=== PATIENT | male | born 1975 | race Caucasian/White ===

== ENCOUNTER 2016-10-05 20:28 | Emergency (ER) | payer MEDICAID ==
[~2016-10-05] VITALS: Ht 175.3 cm; Wt 115.7 kg
[2016-10-05] MEDS ORDERED: ASACOL HD800 MG ORAL (20:46)
[2016-10-05] MEDS ORDERED: ZOFRAN ODT8 MG ORAL (20:46)
[2016-10-05] MEDS ORDERED: PREDNISONE2.5 MG ORAL (20:46)
[2016-10-05] MEDS ORDERED: NORVASC10 MG ORAL (20:46)
[2016-10-05 20:50] VITALS: BP 160/93
[2016-10-05] MEDS ORDERED: metroNIDAZOLE 500mg 100 ML IVPB ONE (21:15)
[2016-10-05] MEDS ORDERED: Solu-MEDROL 125mg Inj IVP ONE (21:15)
--- NOTE | 2016-10-05 21:22 | Emergency Room Report ---
History of Present Illness General Chief Complaint: Abdominal Pain Source: Patient Present Illness HPI [id number] walk-in with "crohs flare" denotes 3 days right sided/central abd pain, nausea and diarrhea On Mesalamine and 5mg daily prednisone currently Multiple surgical history (see below) Denies blood in diarrhea History of HTN Usually improves with IV steroids, Abx Allergies: Coded Allergies: No Known Allergies (Unverified , 10/05/16) Patient History Past Medical History: HTN, other - Corhns Past Surgical History: other - 4x incarcerated hernia, 2x SBO, fistula? Pertinent Family History: none Social History: Denies: alcohol use, drug use, smoking Immunizations: UTD Reviewed Nursing Documentation: PMH: Agreed, PSxH: Agreed Review of Systems All Other Systems: negative except mentioned in HPI Physical Exam Vital Signs Date Time Temp Pulse Resp B/P Pulse Ox O2 Delivery O2 Flow Rate FiO2 10/05/16 20:42 98.1 93 16 164/92 95 Room Air Sp02 EP Interpretation: reviewed, normal General Appearance: normal inspection, well appearing, no apparent distress, alert, GCS 15, non-toxic, obese Head: normocephalic, atraumatic Eyes: bilateral eye EOMI, bilateral eye PERRL, 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 H&H stable. LFTs, lipase normal CTAP: No inflammation, colitis, obstruction, hernia. Normal No obvious lab or imaging finding c/w crohns flare-up Advised continue daily prednisone Gave GI referral Dr Lorraine CIFUENTES home EKG Diagnostic Results Rate: normal Rhythm: NSR ST Segments: no acute changes ASA given to the pt in ED: No Last Vital Signs Date Time Temp Pulse Resp B/P Pulse Ox O2 Delivery O2 Flow Rate FiO2 10/05/16 20:42 98.1 93 16 164/92 95 Room Air Status: improved Disposition: HOME, SELF-CARE Condition: Improved AMELIA CASTLE M.D. Oct 05, 2016 21:22
[2016-10-05 21:44] LABS: BASOPHILS % (AUTO) 1.1 % (0.0-2.0); EOSINOPHILS % (AUTO) 1.4 % (0.0-3.0); LYMPHOCYTES % (AUTO) 29.3 % (20.0-45.0); MEAN CORPUSCULAR HEMOGLOBIN 31.9 PG (27.0-31.0); MEAN CORPUSCULAR HGB CONC 35.1 G/DL (32.0-36.0); MEAN CORPUSCULAR VOLUME 91 FL (80-99); MEAN PLATELET VOLUME 7.7 FL (6.5-10.1); MONOCYTES % (AUTO) 8.3 % (1.0-10.0); NEUTROPHILS % (AUTO) 59.9 % (45.0-75.0); PLATELET COUNT 203 K/UL (150-450); RED CELL DISTRIBUTION WIDTH 11.5 % (11.6-14.8); WHITE BLOOD COUNT 6.8 K/UL (4.8-10.8)
[2016-10-05 21:51] LABS: ALANINE AMINOTRANSFERASE 17 U/L (3-41); ALBUMIN/GLOBULIN RATIO 1.5 (1.0-2.7); ANION GAP 11 (5-15); ASPARTATE AMINO TRANSFERASE 16 U/L (5-40); CALCIUM 9.2 mg/dL (8.6-10.2); CARBON DIOXIDE 25 mEQ/L (20-30); CHLORIDE 103 mEQ/L (98-107); CREATININE 1.1 mg/dL (0.7-1.2); GLOMERULAR FILTRATION RATE > 60 mL/min (>60); HEMOLYSIS 31; LIPASE 30 U/L (< 60); POTASSIUM 3.9 mEQ/L (3.4-4.9); SODIUM 139 mEQ/L (135-145); TOTAL PROTEIN 6.7 g/dL (6.6-8.7)
[2016-10-05] MEDS ORDERED: fentaNYL 100 mcg/2 mL IV ONE (22:15)
[2016-10-05 23:00] VITALS: BP 148/70
[2016-10-06 00:16] VITALS: BP 148/70
--- NOTE | 2016-10-06 09:52 | Diagnostic Imaging Report ---
Clinical Indication: Abdominal pain, nausea vomiting, diarrhea, history of Crohn's disease Technique: No oral contrast utilized, per emergency room physician request IV administration nonionic contrast. Venous phase spiral acquisition obtained through the abdomen and pelvis. Multiplanar reconstructions were generated. Total dose length product 992 mGycm. CTDIvol(s) 19 mGy. Dose reduction achieved using automated exposure control Comparison: None Findings: No evidence of diverticulosis or diverticulitis. Normal appendix. There is evidence of prior anterior abdominal wall hernia repair. No evidence of recurrent hernia. No small bowel distention. No free or loculated intraperitoneal air or fluid. The liver is mildly hypoattenuating, consistent with fatty change. The gallbladder is surgically absent. No biliary ductal dilatation. The pancreas, spleen, adrenals are unremarkable. A 2 mm calculus is seen with in a left renal interpolar region calyx. A 2 mm calculus is seen in a right lower pole calyx. No hydronephrosis or hydroureter. No renal mass or cyst. No retroperitoneal or mesenteric mass or adenopathy. No pelvic mass or adenopathy. The included lung bases are clear. The bones are unremarkable. Impression: No definite acute process Fatty liver Bilateral nonobstructive intrarenal calculi Evidence of prior anterior abdominal wall hernia repair This agrees with the preliminary interpretation provided overnight by [facility] teleradiology service. The CT scanner at [facility] is accredited by the [employer] and the scans are performed using protocols designed to limit radiation exposure to as low as reasonably achievable to attain images of sufficient resolution adequate for diagnostic evaluation.
== END 2016-10-06 00:16 | disposition home or self-care (01) ==
LOC: ENRESERVDT → ENRESERVTM → EMR 22:13 → EDBEDREQ 23:39 → EMR 10-06 00:16
DX: K50.90 Crohn's disease, unspecified, without complications (principal); R10.84 Generalized abdominal pain; I10 Essential (primary) hypertension; E66.9 Obesity, unspecified; K76.0 Fatty (change of) liver, not elsewhere classified; N20.0 Calculus of kidney; Z68.37 Body mass index [BMI] 37.0-37.9, adult
CPT/HCPCS: 36415; 74177; 80053; 83690; 85025; 93005; 96360; 96374; 96375; 99284; J1956; J2405; J2930; J3010; Q9967

== ENCOUNTER 2016-10-07 03:32 | Inpatient (IN) | payer MEDICAID ==
[~2016-10-07] VITALS: Ht 175.3 cm; Wt 113.4 kg
[~2016-10-07 03:32] MED LIST: ASACOL HD800 MG ORAL; NORVASC10 MG ORAL; PREDNISONE2.5 MG ORAL; ZOFRAN ODT8 MG ORAL
[2016-10-07 03:54] VITALS: BP 150/93
[2016-10-07] MEDS ORDERED: Solu-MEDROL 125mg Inj IVP ONE (04:30)
[2016-10-07] MEDS ORDERED: Morphine Sulfate 4mg/ml Inj IVP ONE ×2 (04:30→06:45)
[2016-10-07 05:00] VITALS: BP 119/96
[2016-10-07 05:21] LABS: APPEARANCE,URINE CLEAR; KETONES,URINE NEGATIVE (NEGATIVE); LEUKOCYTE ESTERASE ,URINE 1+ (NEGATIVE); NITRITE,URINE NEGATIVE (NEGATIVE); PH,URINE 5 (4.5-8.0); PROTEIN,URINE 2+ (NEGATIVE); UROBILINOGEN,URINE NORMAL MG/DL (0.0-1.0)
[2016-10-07 05:23] LABS: EOSINOPHILS % (AUTO) 0.3 % (0.0-3.0); LYMPHOCYTES % (AUTO) 37.6 % (20.0-45.0); MEAN CORPUSCULAR HEMOGLOBIN 30.3 PG (27.0-31.0); MEAN CORPUSCULAR HGB CONC 32.8 G/DL (32.0-36.0); MEAN CORPUSCULAR VOLUME 92 FL (80-99); MEAN PLATELET VOLUME 7.9 FL (6.5-10.1); MONOCYTES % (AUTO) 9.3 % (1.0-10.0); NEUTROPHILS % (AUTO) 51.8 % (45.0-75.0); PLATELET COUNT 206 K/UL (150-450); RED BLOOD COUNT 4.56 M/UL (4.70-6.10); RED CELL DISTRIBUTION WIDTH 11.5 % (11.6-14.8); WHITE BLOOD COUNT 5.2 K/UL (4.8-10.8)
[2016-10-07 05:27] LABS: ALANINE AMINOTRANSFERASE 17 U/L (3-41); ALBUMIN/GLOBULIN RATIO 1.3 (1.0-2.7); ANION GAP 13 (5-15); ASPARTATE AMINO TRANSFERASE 21 U/L (5-40); CALCIUM 9.6 mg/dL (8.6-10.2); CARBON DIOXIDE 23 mEQ/L (20-30); CHLORIDE 105 mEQ/L (98-107); GLOMERULAR FILTRATION RATE > 60 mL/min (>60); HEMOLYSIS 57; LIPASE 19 U/L (< 60); POTASSIUM 3.8 mEQ/L (3.4-4.9); SODIUM 141 mEQ/L (135-145); TOTAL PROTEIN 6.7 g/dL (6.6-8.7)
[2016-10-07 05:34] LABS: PROTHROMBIN TIME 10.3 SEC (9.30-11.50)
[2016-10-07 05:36] LABS: BACTERIA,URINE MODERATE /HPF; CALCIUM OXALATE CRYSTALS,UR FEW /LPF; MUCUS,URINE MODERATE /LPF (NONE/OCC); SQUAMOUS EPITHELIAL CELL,UR FEW /LPF (NONE/OCC)
[2016-10-07 06:00] VITALS: BP 156/92
[2016-10-07] MEDS ORDERED: cefTRIAXone 1 GM in NS 55 ML IVPB ONE (06:45)
--- NOTE | 2016-10-07 06:47 | Emergency Room Report ---
History of Present Illness General Chief Complaint: Abdominal Pain Source: Patient Present Illness HPI Patient presents with 4 days of worsening abdominal pain. Seen here 2 days ago. He has a history of Crohn's disease and is on Asacol and Prednisone 5 mg. His was better and discharged to followup with Dr. Layton was arranged. Unfortunately the pain has persisted and worsened. He's not been able to keep things down has been vomiting bile. He feels weak. The vomitus is been yellow. He's had diarrhea without any blood, brown in color. Pain is 8/10, now constant. The patient had recent surgery in May for hernia. No joint pain, sore throat, cough, chest pain, change vision, headache, rashes, anxiety. Some dizziness with standing. Allergies: Coded Allergies: No Known Allergies (Unverified , 10/05/16) Patient History Past Medical History: see triage record Past Surgical History: zoey Social History: Denies: alcohol use, drug use, smoking Social History Narrative recent move to [place] Reviewed Nursing Documentation: PMH: Agreed, PSxH: Agreed Nursing Documentation-PMH Past Medical History: No History, Except For Hx Hypertension: Yes Hx Gastrointestinal Problems: Yes - crohns Review of Systems All Other Systems: negative except mentioned in HPI Physical Exam Vital Signs Date Time Temp Pulse Resp B/P Pulse Ox O2 Delivery O2 Flow Rate FiO2 10/07/16 03:38 98.1 82 16 150/93 97 Room Air Sp02 EP Interpretation: reviewed, normal General Appearance: well appearing, no apparent distress, GCS 15 Head: normocephalic Eyes: bilateral eye PERRL, bilateral eye normal inspection ENT: moist mucus membranes Neck: supple Respiratory: lungs clear, normal breath sounds Cardiovascular #1: regular rate, rhythm Cardiovascular #2: 2+ radial (R) Gastrointestinal: no guarding, no rebound, tenderness Musculoskeletal: back normal, gait/station normal, normal range of motion Neurologic: alert, oriented x3, grossly normal Psychiatric: depressed affect Skin: normal inspection, warm/dry Medical Decision Making Diagnostic Impression: Primary Impression: Abdominal pain Qualified Codes: R10.31 - Right lower quadrant pain Additional Impressions: Crohn disease Qualified Codes: K50.918 - Crohn's disease, unspecified, with other complication UTI (urinary tract infection) Qualified Codes: N30.00 - Acute cystitis without hematuria ER Course Patient presents with abdominal pain, vomiting and diarrhea. Has a history of Crohn's disease. Differential includes exacerbation of Crohn's, diverticulitis , gastroenteritis, appendicitis amongst others. There is concern because he was seen 2 days ago and is weaker and still has pain. Evaluated with abdominal films, labs and urinalysis. In addition that he will be treated with IV hydration, Zofran and analgesia. In addition to that he'll be given a dose of methylprednisolone. CT was done before and not indicated at this time. CT 10/05: Impression: No definite acute process Fatty liver Bilateral nonobstructive intrarenal calculi Evidence of prior anterior abdominal wall hernia repair Labs are significant for normal white count. He has pyuria and antibiotics were begun. Abdominal films are remarkable for prior cholecystectomy and other abdominal wall surgery. There is no evidence of small bowel obstruction. The patient felt initially better but the pain started to come back. His repeat exam was significant for having right lower quadrant guarding which developed in the interim. A CT scan of his abdomen is ordered. Because the patient was here before and is so weak at this time the patient will be admitted to the medical floor. Signed out to Dr. Martin for review of CT. Laboratory Tests Test 10/07/16 04:25 White Blood Count 5.2 K/UL (4.8-10.8) Red Blood Count 4.56 M/UL (4.70-6.10) L Hemoglobin 13.8 G/DL (14.2-18.0) L Hematocrit 42.2 % (42.0-52.0) Mean Corpuscular Volume 92 FL (80-99) Mean Corpuscular Hemoglobin 30.3 PG (27.0-31.0) Mean Corpuscular Hemoglobin Concent 32.8 G/DL (32.0-36.0) Red Cell Distribution Width 11.5 % (11.6-14.8) L Platelet Count 206 K/UL (150-450) Mean Platelet Volume 7.9 FL (6.5-10.1) Neutrophils (%) (Auto) 51.8 % (45.0-75.0) Lymphocytes (%) (Auto) 37.6 % (20.0-45.0) Monocytes (%) (Auto) 9.3 % (1.0-10.0) Eosinophils (%) (Auto) 0.3 % (0.0-3.0) Basophils (%) (Auto) 1.0 % (0.0-2.0) Prothrombin Time 10.3 SEC (9.30-11.50) Prothrombin Time INR 1.0 (0.9-1.1) PTT 24 SEC (23-33) Urine Color Yellow Urine Appearance Clear Urine pH 5 (4.5-8.0) Urine Specific [place] 1.030 (1.005-1.035) Urine Protein 2+ (NEGATIVE) H Urine Glucose (UA) Negative (NEGATIVE) Urine Ketones Negative (NEGATIVE) Urine Occult Blood 1+ (NEGATIVE) H Urine Nitrite Negative (NEGATIVE) Urine Bilirubin Negative (NEGATIVE) Urine Urobilinogen Normal MG/DL (0.0-1.0) Urine Leukocyte Esterase 1+ (NEGATIVE) H Urine RBC 2-4 /HPF (0 - 0) H Urine WBC 5-10 /HPF (0 - 0) H Urine Squamous Epithelial Cells Few /LPF (NONE/OCC) Urine Calcium Oxalate Crystals Few /LPF (NONE) Urine Bacteria Moderate /HPF (NONE) H Urine Mucus Moderate /LPF (NONE/OCC) H Sodium Level 141 mEQ/L (135-145) Potassium Level 3.8 mEQ/L (3.4-4.9) Chloride Level 105 mEQ/L (98-107) Carbon Dioxide Level 23 mEQ/L (20-30) Anion Gap 13 (5-15) Blood Urea Nitrogen 19 mg/dL (7-23) Creatinine 1.0 mg/dL (0.7-1.2) Estimate Glomerular Filtration Rate > 60 mL/min (>60) Glucose Level 108 mg/dL (74-106) H Calcium Level 9.6 mg/dL (8.6-10.2) Total Bilirubin 0.7 mg/dL (0.0-1.2) Aspartate Amino Transferase (AST) 21 U/L (5-40) Alanine Aminotransferase (ALT) 17 U/L (3-41) Alkaline Phosphatase 59 U/L (40-129) Total Protein 6.7 g/dL (6.6-8.7) Albumin 3.9 g/dL (3.5-5.2) Globulin 2.8 g/dL Albumin/Globulin Ratio 1.3 (1.0-2.7) Lipase 19 U/L (< 60) Chest X-Ray Diagnostic Results Chest X-Ray Diagnostic Results : Chest X-Ray Ordered: Yes # of Views/Limited/Complete: 1 View Indication: Other Interpretation: no consolidation, no effusion, no pneumothorax, no acute cardiopulmonary disease Other X-Ray Diagnostic Results Other X-Ray Diagnostic Results : X-Ray ordered: abd # of Views/Limited Vs Complete: 2 View Indication: Pain EP Interpretation: Yes Interpretation: nonspecific bowel gas, no sbo, other - surgical clips Impression: No acute disease Interpreting ER Provider: Electronically signed by Dc Hayes MD Status: improved Disposition: ADMITTED INPATIENT Condition: Serious Referrals: Sebas BELLO,REFERRING (PCP) Dc Hayes M.D. Oct 07, 2016 06:47
[2016-10-07 07:34] VITALS: BP 143/113
--- NOTE | 2016-10-07 10:10 | Diagnostic Imaging Report ---
Clinical Indication: Abdominal pain, nausea vomiting, history of Crohn disease Technique: Patient given oral contrast. IV administration nonionic contrast. Venous phase spiral acquisition obtained through the abdomen and pelvis. Multiplanar reconstructions were generated. Total dose length product 1111 mGycm. CTDIvol(s) 19 mGy. Dose reduction achieved using automated exposure control Comparison: 10/05/2016 Findings: The appendix is normal and fills with contrast. There is no evidence of diverticulosis or diverticulitis. Contrast completely traverses the small bowel and fills the colon to the level of the proximal descending colon. There is no evidence of small bowel distention or small bowel wall thickening. The terminal ileum appears unremarkable. No free or loculated intraperitoneal air or fluid. Again demonstrated is surgical mesh presumably reducing prior ventral hernia. The distal esophagus, stomach, duodenum are unremarkable. The gallbladder is surgically absent. The bile ducts are unremarkable. The liver is mildly hypoattenuating diffusely. No focal abnormality. The pancreas, spleen, adrenals are unremarkable. No retroperitoneal or mesenteric mass or adenopathy. No pelvic mass or adenopathy. The bones are unremarkable. The heart is mildly enlarged. Atelectatic changes and possibly some consolidation are seen posteriorly in both lower lobes. Again demonstrated is a left interpolar region renal calyceal calculus, as well as right lower pole calyceal calculus. There is equivocally asymmetrically slightly decreased attenuation of the left kidney as compared to the right. There are focal areas of low attenuation within the left kidney which are ill-defined. The largest is in the upper interpolar region, measuring 13 mm diameter. One is in medial upper pole, and a 9 mm similar lesion is seen in the lower interpolar region. The latter lesion is somewhat more discrete, measures 9 mm diameter. These are not evident on the prior exam, although the difference may be due to the current exam in a slightly later phase of contrast opacification. No definite focal abnormality seen on the right. No hydronephrosis or hydroureter Impression: Equivocally slightly asymmetrically decreased opacification of the left kidney. Doubt significance, but if real could indicate diffuse pyelonephritis. Multiple focal low-attenuation areas in the left kidney. Suspect that these most likely represent cysts, but somewhat ill-defined nature of of the upper pole lesions raises possibility of more focal nephritis. The more inferior left renal lesion is more masslike,. Represent a complex cyst or even a renal neoplasm. Further evaluation with renal ultrasound or MRI should be considered. Note that these lesions are not evident on the exam of 2 days prior, probably as the kidneys are better opacified on the current study Bilateral nonobstructing intrarenal calculi. Negative for hydronephrosis or hydroureter No other acute abnormality Mild fatty liver Cardiomegaly Bilateral basilar pulmonary posterior to dependent atelectatic change and possible bilateral basilar consolidation Findings discussed by phone with Dr. Martin in the emergency room at time of interpretation The CT scanner at [facility] is accredited by the [employer] and the scans are performed using protocols designed to limit radiation exposure to as low as reasonably achievable to attain images of sufficient resolution adequate for diagnostic evaluation.
[2016-10-07] MEDS ORDERED: Nitroglycerin Subl 0.4mg tab (Bottle Of 25) SL PRN (11:00)
[2016-10-07] MEDS ORDERED: Mylanta II UD 30ml ORAL PRN (11:00)
[2016-10-07 11:48] VITALS: BP 149/87
[2016-10-07] MEDS: D5 1/2NS 1,000 ML IV SCH (12:09)
--- NOTE | 2016-10-07 12:17 | GI Initial Consult Note ---
History of Present Illness General Date patient seen: Oct 07, 2016 Time patient seen: 12:07 Reason for Hospitalization: Abdominal Pain Referring physician: KATHI MCCONNELL Reason for Consultation: CROHNS Present Illness HPI Patient presents with 4 days of worsening abdominal pain. Seen here 2 days ago. He has a history of Crohn's disease and is on Asacol and redness on 5 mg. His better and followup with Dr. Zhang was arranged. Unfortunately the pain is persisted and worsened. He's not been able to keep things down is been vomiting bile. He feels weak. The vomitus is been yellow. He's had diarrhea without any blood. Pain is 8/10, now constant. The patient had recent surgery in May for inguinal hernia. GI Consult. HPI as noted above. GI consulted for management of Crohn's. Pt seen on floor, awake A&Ox4 NAD with no active s/sx of N/V. Patient presents today with Crohn's flare; reports of emesis, abdominal pain, tenderness, associated with diarrhea. Denies any hematemesis or coffee grounds. No unintentional weight loss or changes in dietary habits. Currently on Asacol 800 TID + prednisone 5 daily (6 months ON, 3 months OFF). Last colonoscopy was [address] AP shows possible renal mass, see full report. Home Meds Reported Medications Ondansetron Odt* (ZOFRAN ODT*) 8 Mg Tab.rapdis, 8 MG ORAL Q6H Y for Nausea & Vomiting, #30 TAB 10/05/16 Amlodipine Besylate (Norvasc) 10 Mg Tablet, 10 MG ORAL DAILY, TAB 10/05/16 Prednisone* (PREDNISONE*) 2.5 Mg Tablet, 5 MG ORAL DAILY, #10 TAB 0 Refills 10/05/16 Mesalamine (ASACOL HD) 800 Mg Tablet.dr, 1600 MG ORAL THREE TIMES A DAY, TAB Do not break outer coating 10/05/16 Med list reviewed/reconciled: Yes Allergies: Coded Allergies: No Known Allergies (Unverified , 10/05/16) Patient History PMH Narrative Past Surgical History: zoey Social History: Denies: alcohol use, drug use, smoking Social History Narrative recent move to [place] Reviewed Nursing Documentation: PMH: Agreed, PSxH: Agreed Nursing Documentation-PMH Past Medical History: No History, Except For Hx Hypertension: Yes Hx Gastrointestinal Problems: Yes - crohns Social History: Denies: alcohol use, drug use, other, smoking Review of Systems All Other Systems: negative except mentioned in HPI Physical Exam Vital Signs Date Time Temp Pulse Resp B/P Pulse Ox O2 Delivery O2 Flow Rate FiO2 10/07/16 03:38 98.1 82 16 150/93 97 Room Air Sp02 EP Interpretation: reviewed Labs Laboratory Tests Test 10/07/16 04:25 White Blood Count 5.2 K/UL (4.8-10.8) Red Blood Count 4.56 M/UL (4.70-6.10) L Hemoglobin 13.8 G/DL (14.2-18.0) L Hematocrit 42.2 % (42.0-52.0) Mean Corpuscular Volume 92 FL (80-99) Mean Corpuscular Hemoglobin 30.3 PG (27.0-31.0) Mean Corpuscular Hemoglobin Concent 32.8 G/DL (32.0-36.0) Red Cell Distribution Width 11.5 % (11.6-14.8) L Platelet Count 206 K/UL (150-450) Mean Platelet Volume 7.9 FL (6.5-10.1) Neutrophils (%) (Auto) 51.8 % (45.0-75.0) Lymphocytes (%) (Auto) 37.6 % (20.0-45.0) Monocytes (%) (Auto) 9.3 % (1.0-10.0) Eosinophils (%) (Auto) 0.3 % (0.0-3.0) Basophils (%) (Auto) 1.0 % (0.0-2.0) Prothrombin Time 10.3 SEC (9.30-11.50) Prothromb Time International Ratio 1.0 (0.9-1.1) Activated Partial Thromboplast Time 24 SEC (23-33) Urine Color Yellow Urine Appearance Clear Urine pH 5 (4.5-8.0) Urine Specific [place] 1.030 (1.005-1.035) Urine Protein 2+ (NEGATIVE) H Urine Glucose (UA) Negative (NEGATIVE) Urine Ketones Negative (NEGATIVE) Urine Occult Blood 1+ (NEGATIVE) H Urine Nitrite Negative (NEGATIVE) Urine Bilirubin Negative (NEGATIVE) Urine Urobilinogen Normal MG/DL (0.0-1.0) Urine Leukocyte Esterase 1+ (NEGATIVE) H Urine RBC 2-4 /HPF (0 - 0) H Urine WBC 5-10 /HPF (0 - 0) H Urine Squamous Epithelial Cells Few /LPF (NONE/OCC) Urine Calcium Oxalate Crystals Few /LPF (NONE) Urine Bacteria Moderate /HPF (NONE) H Urine Mucus Moderate /LPF (NONE/OCC) H Sodium Level 141 mEQ/L (135-145) Potassium Level 3.8 mEQ/L (3.4-4.9) Chloride Level 105 mEQ/L (98-107) Carbon Dioxide Level 23 mEQ/L (20-30) Anion Gap 13 (5-15) Blood Urea Nitrogen 19 mg/dL (7-23) Creatinine 1.0 mg/dL (0.7-1.2) Estimat Glomerular Filtration Rate > 60 mL/min (>60) Glucose Level 108 mg/dL (74-106) H Calcium Level 9.6 mg/dL (8.6-10.2) Total Bilirubin 0.7 mg/dL (0.0-1.2) Aspartate Amino Transf (AST/SGOT) 21 U/L (5-40) Alanine Aminotransferase (ALT/SGPT) 17 U/L (3-41) Alkaline Phosphatase 59 U/L (40-129) Total Protein 6.7 g/dL (6.6-8.7) Albumin 3.9 g/dL (3.5-5.2) Globulin 2.8 g/dL Albumin/Globulin Ratio 1.3 (1.0-2.7) Lipase 19 U/L (< 60) General Appearance: well appearing, no apparent distress, alert Head: normocephalic EENT: PERRL/EOMI, normal ENT inspection Neck: supple Respiratory: normal breath sounds, no respiratory distress Cardiovascular: normal rate Gastrointestinal: non tender, soft, normal bowel sounds, no bruit Rectal: deferred Genitourinary: no CVA tenderness Musculoskeletal: normal inspection, back normal Neurologic: normal inspection, alert, oriented x3, responsive Psychiatric: normal inspection, judgement/insight normal, memory normal Skin: normal inspection, normal color, no rash, warm/dry, palpation normal Lymphatic: normal inspection, no adenopathy Current Medications Current Medications Medications (Trade) Dose Ordered Sig/Adrienne Route PRN Reason Start Time Stop Time Status Last Admin Dose Admin Acetaminophen (Tylenol) 650 mg Q4H PRN ORAL fever>100.5 10/07/16 11:00 11/06/16 10:59 Al Hydroxide/Mg Hydroxide (Mylanta II) 30 ml Q6H PRN ORAL dyspepsia 10/07/16 11:00 11/06/16 10:59 Amlodipine Besylate 10 mg 10 mg DAILY ORAL 10/08/16 09:00 11/07/16 08:59 Dextrose STAT PRN IV Hypoglycemia 10/07/16 11:00 11/06/16 10:59 Dextrose/Sodium Chloride (D5 0.45% NS) 1,000 ml @ 75 mls/hr [id number] IV 10/07/16 11:00 11/06/16 10:59 Diphenhydramine HCl (Benadryl) 25 mg Q6H PRN ORAL Itching/Pruritis 10/07/16 11:00 11/06/16 10:59 Heparin Sodium (Porcine) (Heparin 5000 units/ml) 5,000 units EVERY 12 HOURS SUBQ 10/07/16 21:00 11/06/16 20:59 Morphine Sulfate (Morphine Sulfate) 2 mg Q4H PRN IVP severe Pain (Pain Scale 7-10) 10/07/16 11:00 10/14/16 10:59 Nitroglycerin (Ntg) 0.4 mg Q5M X 3 DOSES PRN SL Prn Chest Pain 10/07/16 11:00 11/06/16 10:59 Ondansetron HCl (Zofran) 4 mg Q6H PRN IVP Nausea & Vomiting 10/07/16 11:00 11/06/16 10:59 Pantoprazole (Protonix) 40 mg DAILY IVP 10/08/16 09:00 11/07/16 08:59 Piperacillin Sod/ Tazobactam Sod/ Sodium Chloride (Zosyn/Sodium Chloride) 110 ml @ 27.5 mls/hr EVERY 8 HOURS IVPB 10/07/16 14:00 10/14/16 13:59 Polyethylene Glycol (Miralax) 17 gm HSPRN PRN ORAL Constipation 10/07/16 21:00 11/06/16 20:59 Temazepam (Restoril) 15 mg HSPRN PRN ORAL Insomnia 10/07/16 21:00 10/14/16 20:59 GI: Plan Problems: (1) Dehydration (2) Diarrhea (3) Abdominal pain (4) Crohn disease Plan Crohn's management - Asacol 1600 TID, hold Prednisone at this time. - ordered cdiff, stool culture >> will consider Imodium after studies - ordered ESR, C-reactive protein to r/o Crohns flare bowel rest >> maintain NPO + IV hydration zofran prn fu iron panel pain management electrolyte correction ppi abx fu labs Discussed with Dr. Waterman. Thank you for referring this patient, we will follow. Christine Gonzales N.P. Oct 07, 2016 12:17
[2016-10-07] MEDS: Piperacillin/Tazobactam 3.375 GM in NS 110 ML IVPB SCH ×2 (14:19→21:53)
--- NOTE | 2016-10-07 15:45 | History and Physical ---
History of Present Illness General Date patient seen: Oct 07, 2016 Reason for Hospitalization: Abdominal Pain Present Illness HPI 41 year old male with hx of Crohn disease presented to ER with CC of 4 days of worsening abdominal pain. He's not been able to keep food down and is been vomiting bile. He feels weak. He's had diarrhea without any blood. Pain is 8 /10, now constant. He is admitted for intractable nausea and abdominal pain. Allergies: Coded Allergies: No Known Allergies (Unverified , 10/05/16) Medication History Scheduled Amlodipine Besylate (Norvasc), 10 MG ORAL DAILY, (Reported) Mesalamine (Asacol Hd), 1,600 MG ORAL THREE TIMES A DAY, (Reported) Prednisone* (Prednisone*), 5 MG ORAL DAILY, (Reported) Scheduled PRN Ondansetron Odt* (Zofran Odt*), 8 MG ORAL Q6H PRN for Nausea & Vomiting, ( Reported) Patient History Healthcare decision maker Resuscitation status Advanced Directive on File Past Medical/Surgical History Past Medical/Surgical History: (1) Crohn disease Review of Systems All Other Systems: negative except mentioned in HPI Physical Exam General Appearance: WD/WN, no apparent distress HEENT: normocephalic, atraumatic Neck: abnormal alignment Respiratory/Chest: chest wall non-tender, lungs clear Cardiovascular/Chest: no JVD Last 24 Hour Vital Signs Date Time Temp Pulse Resp B/P Pulse Ox O2 Delivery O2 Flow Rate FiO2 10/07/16 11:48 97.7 65 18 149/87 97 Room Air 10/07/16 09:50 97.8 79 17 160/93 99 Room Air 10/07/16 07:34 97.8 88 17 143/113 98 Room Air 10/07/16 07:33 97.8 10/07/16 06:00 62 16 156/92 96 Room Air 10/07/16 05:00 97.8 70 17 119/96 98 Room Air 10/07/16 03:54 98.1 16 150/93 97 Room Air 10/07/16 03:38 98.1 82 16 150/93 97 Room Air Intake and Output 10/06/16 10/07/16 19:00 07:00 Intake Total 1000 ml Balance 1000 ml Intake IV Total 1000 ml Laboratory Tests Test 10/07/16 04:25 White Blood Count 5.2 K/UL (4.8-10.8) Red Blood Count 4.56 M/UL (4.70-6.10) L Hemoglobin 13.8 G/DL (14.2-18.0) L Hematocrit 42.2 % (42.0-52.0) Mean Corpuscular Volume 92 FL (80-99) Mean Corpuscular Hemoglobin 30.3 PG (27.0-31.0) Mean Corpuscular Hemoglobin Concent 32.8 G/DL (32.0-36.0) Red Cell Distribution Width 11.5 % (11.6-14.8) L Platelet Count 206 K/UL (150-450) Mean Platelet Volume 7.9 FL (6.5-10.1) Neutrophils (%) (Auto) 51.8 % (45.0-75.0) Lymphocytes (%) (Auto) 37.6 % (20.0-45.0) Monocytes (%) (Auto) 9.3 % (1.0-10.0) Eosinophils (%) (Auto) 0.3 % (0.0-3.0) Basophils (%) (Auto) 1.0 % (0.0-2.0) Prothrombin Time 10.3 SEC (9.30-11.50) Prothromb Time International Ratio 1.0 (0.9-1.1) Activated Partial Thromboplast Time 24 SEC (23-33) Urine Color Yellow Urine Appearance Clear Urine pH 5 (4.5-8.0) Urine Specific [place] 1.030 (1.005-1.035) Urine Protein 2+ (NEGATIVE) H Urine Glucose (UA) Negative (NEGATIVE) Urine Ketones Negative (NEGATIVE) Urine Occult Blood 1+ (NEGATIVE) H Urine Nitrite Negative (NEGATIVE) Urine Bilirubin Negative (NEGATIVE) Urine Urobilinogen Normal MG/DL (0.0-1.0) Urine Leukocyte Esterase 1+ (NEGATIVE) H Urine RBC 2-4 /HPF (0 - 0) H Urine WBC 5-10 /HPF (0 - 0) H Urine Squamous Epithelial Cells Few /LPF (NONE/OCC) Urine Calcium Oxalate Crystals Few /LPF (NONE) Urine Bacteria Moderate /HPF (NONE) H Urine Mucus Moderate /LPF (NONE/OCC) H Sodium Level 141 mEQ/L (135-145) Potassium Level 3.8 mEQ/L (3.4-4.9) Chloride Level 105 mEQ/L (98-107) Carbon Dioxide Level 23 mEQ/L (20-30) Anion Gap 13 (5-15) Blood Urea Nitrogen 19 mg/dL (7-23) Creatinine 1.0 mg/dL (0.7-1.2) Estimat Glomerular Filtration Rate > 60 mL/min (>60) Glucose Level 108 mg/dL (74-106) H Calcium Level 9.6 mg/dL (8.6-10.2) Total Bilirubin 0.7 mg/dL (0.0-1.2) Aspartate Amino Transf (AST/SGOT) 21 U/L (5-40) Alanine Aminotransferase (ALT/SGPT) 17 U/L (3-41) Alkaline Phosphatase 59 U/L (40-129) Total Protein 6.7 g/dL (6.6-8.7) Albumin 3.9 g/dL (3.5-5.2) Globulin 2.8 g/dL Albumin/Globulin Ratio 1.3 (1.0-2.7) Lipase 19 U/L (< 60) Height (Feet): 5 Height (Inches): 9.00 Weight (Pounds): 250 Medications Current Medications Medications (Trade) Dose Ordered Sig/Adrinene Route PRN Reason Start Time Stop Time Status Last Admin Dose Admin Acetaminophen (Tylenol) 650 mg Q4H PRN ORAL fever>100.5 10/07/16 11:00 11/06/16 10:59 Al Hydroxide/Mg Hydroxide (Mylanta II) 30 ml Q6H PRN ORAL dyspepsia 10/07/16 11:00 11/06/16 10:59 Amlodipine Besylate 10 mg 10 mg DAILY ORAL 10/08/16 09:00 11/07/16 08:59 Dextrose STAT PRN IV Hypoglycemia 10/07/16 11:00 11/06/16 10:59 Dextrose/Sodium Chloride (D5 0.45% NS) 1,000 ml @ 75 mls/hr [id number] IV 10/07/16 11:00 11/06/16 10:59 10/07/16 12:09 Diphenhydramine HCl (Benadryl) 25 mg Q6H PRN ORAL Itching/Pruritis 10/07/16 11:00 11/06/16 10:59 Heparin Sodium (Porcine) (Heparin 5000 units/ml) 5,000 units EVERY 12 HOURS SUBQ 10/07/16 21:00 11/06/16 20:59 Mesalamine (Asacol) 1,600 mg THREE TIMES A DAY ORAL 10/07/16 18:00 11/06/16 17:59 Morphine Sulfate (Morphine Sulfate) 2 mg Q4H PRN IVP severe Pain (Pain Scale 7-10) 10/07/16 11:00 10/14/16 10:59 Nitroglycerin (Ntg) 0.4 mg Q5M X 3 DOSES PRN SL Prn Chest Pain 10/07/16 11:00 11/06/16 10:59 Ondansetron HCl (Zofran) 4 mg Q6H PRN IVP Nausea & Vomiting 10/07/16 11:00 11/06/16 10:59 Pantoprazole (Protonix) 40 mg DAILY IVP 10/08/16 09:00 11/07/16 08:59 Piperacillin Sod/ Tazobactam Sod/ Sodium Chloride (Zosyn/Sodium Chloride) 110 ml @ 27.5 mls/hr EVERY 8 HOURS IVPB 10/07/16 14:00 10/14/16 13:59 10/07/16 14:19 Polyethylene Glycol (Miralax) 17 gm HSPRN PRN ORAL Constipation 10/07/16 21:00 11/06/16 20:59 Temazepam (Restoril) 15 mg HSPRN PRN ORAL Insomnia 10/07/16 21:00 10/14/16 20:59 Assessment/Plan Problem List: (1) Intractable nausea and vomiting ICD Codes: R11.2 - Nausea with vomiting, unspecified SNOMED: 271818375, 929500304 (2) Abdominal pain ICD Codes: R10.9 - Unspecified abdominal pain SNOMED: 11841547 Qualifiers: Qualified Codes: R10.31 - Right lower quadrant pain (3) UTI (urinary tract infection) ICD Codes: N39.0 - Urinary tract infection, site not specified SNOMED: 02443921 Qualifiers: Qualified Codes: N30.00 - Acute cystitis without hematuria (4) Dehydration ICD Codes: E86.0 - Dehydration SNOMED: 47084854 (5) Crohn disease ICD Codes: K50.90 - Crohn's disease, unspecified, without complications SNOMED: 40524318 Qualifiers: Qualified Codes: K50.918 - Crohn's disease, unspecified, with other complication Assessment/Plan npo IV fluids GI evaluation symptomatic treatment. KATHI GOODSON Oct 07, 2016 15:45
[2016-10-07] MEDS: Morphine Sulfate 2mg/ml Inj IVP PRN (17:48)
[2016-10-07 20:23] VITALS: BP 135/69
[2016-10-07] MEDS ORDERED: Miralax 17gm pkt ORAL PRN (21:00)
[2016-10-07] MEDS: Heparin 5000 units/ml inj SUBQ SCH (21:54)
[2016-10-08] VITALS (7 sets, daily range): BP systolic 113–152; BP diastolic 67–91
[2016-10-08] MEDS: D5 1/2NS 1,000 ML IV SCH ×2 (04:30→13:40)
[2016-10-08] MEDS: Piperacillin/Tazobactam 3.375 GM in NS 110 ML IVPB SCH ×3 (05:40→21:53)
[2016-10-08 07:28] LABS: BASOPHILS % (AUTO) 0.8 % (0.0-2.0); EOSINOPHILS % (AUTO) 0.1 % (0.0-3.0); LYMPHOCYTES % (AUTO) 33.2 % (20.0-45.0); MEAN CORPUSCULAR HEMOGLOBIN 32.5 PG (27.0-31.0); MEAN CORPUSCULAR HGB CONC 34.9 G/DL (32.0-36.0); MEAN CORPUSCULAR VOLUME 93 FL (80-99); MEAN PLATELET VOLUME 8.4 FL (6.5-10.1); MONOCYTES % (AUTO) 6.7 % (1.0-10.0); NEUTROPHILS % (AUTO) 59.2 % (45.0-75.0); PLATELET COUNT 159 K/UL (150-450); RED BLOOD COUNT 4.19 M/UL (4.70-6.10); RED CELL DISTRIBUTION WIDTH 11.4 % (11.6-14.8); WHITE BLOOD COUNT 5.4 K/UL (4.8-10.8)
[2016-10-08 07:35] LABS: ALANINE AMINOTRANSFERASE 15 U/L (3-41); ALBUMIN/GLOBULIN RATIO 1.5 (1.0-2.7); AMYLASE 45 U/L (10-110); ANION GAP 9 (5-15); ASPARTATE AMINO TRANSFERASE 12 U/L (5-40); CALCIUM 8.9 mg/dL (8.6-10.2); CARBON DIOXIDE 26 mEQ/L (20-30); CHLORIDE 105 mEQ/L (98-107); GLOMERULAR FILTRATION RATE > 60 mL/min (>60); HEMOLYSIS 6; LIPASE 17 U/L (< 60); POTASSIUM 3.5 mEQ/L (3.4-4.9); SODIUM 140 mEQ/L (135-145); TOTAL PROTEIN 5.7 g/dL (6.6-8.7)
[2016-10-08 07:44] LABS: HEMOLYSIS 8; IRON 100 ug/dL (59-158); TOTAL IRON BINDING CAPACITY 234 ug/dL (250-400)
[2016-10-08] MEDS: Heparin 5000 units/ml inj SUBQ SCH ×2 (09:00→09:22)
[2016-10-08] MEDS ORDERED: Pantoprazole Inj IVP SCH (09:00)
--- NOTE | 2016-10-08 10:51 | GI Progress Note ---
Assessment/Plan Problems: (1) Diarrhea ICD Codes: R19.7 - Diarrhea, unspecified SNOMED: 85856891 (2) Dehydration ICD Codes: E86.0 - Dehydration SNOMED: 35846868 (3) Intractable nausea and vomiting ICD Codes: R11.2 - Nausea with vomiting, unspecified SNOMED: 931402197, 317250458 (4) Crohn disease ICD Codes: K50.90 - Crohn's disease, unspecified, without complications SNOMED: 58428599 Qualifiers: Qualified Codes: K50.918 - Crohn's disease, unspecified, with other complication (5) Abdominal pain ICD Codes: R10.9 - Unspecified abdominal pain SNOMED: 40262559 Qualifiers: Qualified Codes: R10.31 - Right lower quadrant pain Status: stable Status Narrative Discussed with Dr. Waterman. Assessment/Plan ESR, C-reactive protein to r/o Crohns flare >> negative iron panel unremarkable cdiff negative Crohn's management - Asacol 1600 TID, hold Prednisone at this time. - fu stool culture >> Imodium prn, consider Lomotil if diarrhea persists adv to low fiber/low residual diet zofran prn pain management electrolyte correction ppi abx fu labs Subjective Gastrointestinal/Abdominal: Reports: diarrhea - x4 Objective Last 24 Hour Vital Signs Date Time Temp Pulse Resp B/P Pulse Ox O2 Delivery O2 Flow Rate FiO2 10/08/16 09:20 60 152/80 10/08/16 08:05 97.9 60 19 152/80 98 Room Air 10/08/16 04:56 97.7 74 20 137/81 95 Room Air 10/08/16 01:12 97.7 57 20 127/67 97 Room Air 10/07/16 20:23 98.1 61 19 135/69 97 Room Air 10/07/16 11:48 97.7 65 18 149/87 97 Room Air Intake and Output 10/07/16 10/08/16 19:00 07:00 Intake Total 2302.5 ml 417.5 ml Balance 2302.5 ml 417.5 ml Intake IV Total 252.5 ml 417.5 ml Other 2050 ml # Voids 1 Laboratory Tests Test 10/08/16 06:25 White Blood Count 5.4 K/UL (4.8-10.8) Red Blood Count 4.19 M/UL (4.70-6.10) L Hemoglobin 13.6 G/DL (14.2-18.0) L Hematocrit 39.0 % (42.0-52.0) L Mean Corpuscular Volume 93 FL (80-99) Mean Corpuscular Hemoglobin 32.5 PG (27.0-31.0) H Mean Corpuscular Hemoglobin Concent 34.9 G/DL (32.0-36.0) Red Cell Distribution Width 11.4 % (11.6-14.8) L Platelet Count 159 K/UL (150-450) Mean Platelet Volume 8.4 FL (6.5-10.1) Neutrophils (%) (Auto) 59.2 % (45.0-75.0) Lymphocytes (%) (Auto) 33.2 % (20.0-45.0) Monocytes (%) (Auto) 6.7 % (1.0-10.0) Eosinophils (%) (Auto) 0.1 % (0.0-3.0) Basophils (%) (Auto) 0.8 % (0.0-2.0) Erythrocyte Sedimentation Rate 14 MM/HR (0-15) Activated Partial Thromboplast Time 24 SEC (23-33) Sodium Level 140 mEQ/L (135-145) Potassium Level 3.5 mEQ/L (3.4-4.9) Chloride Level 105 mEQ/L (98-107) Carbon Dioxide Level 26 mEQ/L (20-30) Anion Gap 9 (5-15) Blood Urea Nitrogen 14 mg/dL (7-23) Creatinine 1.0 mg/dL (0.7-1.2) Estimat Glomerular Filtration Rate > 60 mL/min (>60) Glucose Level 108 mg/dL (74-106) H Calcium Level 8.9 mg/dL (8.6-10.2) Iron Level 100 ug/dL (59-158) Total Iron Binding Capacity 234 ug/dL (250-400) L Percent Iron Saturation 43 % (15-50) Unsaturated Iron Binding 134 ug/dL (112-346) Total Bilirubin 0.5 mg/dL (0.0-1.2) Aspartate Amino Transf (AST/SGOT) 12 U/L (5-40) Alanine Aminotransferase (ALT/SGPT) 15 U/L (3-41) Alkaline Phosphatase 49 U/L (40-129) C-Reactive Protein, Quantitative 0.4 mg/dL (< 0.5) Total Protein 5.7 g/dL (6.6-8.7) L Albumin 3.5 g/dL (3.5-5.2) Globulin 2.2 g/dL Albumin/Globulin Ratio 1.5 (1.0-2.7) Amylase Level 45 U/L (10-110) Lipase 17 U/L (< 60) Height (Feet): 5 Height (Inches): 9.00 Weight (Pounds): 250 General Appearance: no apparent distress, alert Cardiovascular: normal rate Respiratory/Chest: normal breath sounds, no respiratory distress Abdominal Exam: normal bowel sounds, non tender, soft Extremities: normal range of motion Christine Gonzales N.P. Oct 08, 2016 10:51
[2016-10-08] MEDS: Loperamide 2mg cap ORAL PRN (14:47)
[2016-10-08] MEDS: Morphine Sulfate 2mg/ml Inj IVP PRN (14:48)
--- NOTE | 2016-10-08 15:58 | Pulmonology Progress Note ---
Assessment/Plan Problems: (1) Crohn disease (2) Intractable nausea and vomiting (3) Abdominal pain (4) UTI (urinary tract infection) (5) Dehydration Assessment/Plan f/u gi recommendations IV abx ? steroids check electrolytes. Subjective ROS Limited/Unobtainable: No Interval Events: still has diarrhea Allergies: Coded Allergies: No Known Allergies (Unverified , 10/05/16) Objective Last 24 Hour Vital Signs Date Time Temp Pulse Resp B/P Pulse Ox O2 Delivery O2 Flow Rate FiO2 10/08/16 15:50 98.1 64 19 150/87 95 Room Air 10/08/16 11:45 97.5 54 21 116/71 95 Room Air 10/08/16 09:20 60 152/80 10/08/16 08:05 97.9 60 19 152/80 98 Room Air 10/08/16 04:56 97.7 74 20 137/81 95 Room Air 10/08/16 01:12 97.7 57 20 127/67 97 Room Air 10/07/16 20:23 98.1 61 19 135/69 97 Room Air Intake and Output 10/07/16 10/08/16 19:00 07:00 Intake Total 2302.5 ml 417.5 ml Balance 2302.5 ml 417.5 ml IV Total 252.5 ml 417.5 ml Other 2050 ml # Voids 1 General Appearance: WD/WN HEENT: normocephalic, atraumatic Respiratory/Chest: chest wall non-tender, lungs clear Cardiovascular: normal peripheral pulses, normal rate Abdomen: normal bowel sounds, soft, non tender Genitourinary: normal external genitalia Extremities: no clubbing Skin: no rash 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, no motor/sensory deficits Lymphatic: no neck adenopathy, no groin adenopathy Musculoskeletal: normal muscle bulk Laboratory Tests 10/08/16 06:25: White Blood Count 5.4, Red Blood Count 4.19L, Hemoglobin 13.6L, Hematocrit 39.0L , Mean Corpuscular Volume 93, Mean Corpuscular Hemoglobin 32.5H, Mean Corpuscular Hemoglobin Concent 34.9, Red Cell Distribution Width 11.4L, Platelet Count 159, Mean Platelet Volume 8.4, Neutrophils (%) (Auto) 59.2, Lymphocytes (%) (Auto) 33.2, Monocytes (%) (Auto) 6.7, Eosinophils (%) (Auto) 0.1, Basophils (%) (Auto) 0.8, Erythrocyte Sedimentation Rate 14, Activated Partial Thromboplast Time 24, Sodium Level 140, Potassium Level 3.5, Chloride Level 105, Carbon Dioxide Level 26, Anion Gap 9, Blood Urea Nitrogen 14, Creatinine 1.0, Estimat Glomerular Filtration Rate > 60, Glucose Level 108H, Calcium Level 8.9, Iron Level 100, Total Iron Binding Capacity 234L, Percent Iron Saturation 43, Unsaturated Iron Binding 134, Total Bilirubin 0.5, Aspartate Amino Transf (AST/SGOT) 12, Alanine Aminotransferase (ALT/SGPT) 15, Alkaline Phosphatase 49, C-Reactive Protein, Quantitative 0.4, Total Protein 5.7L, Albumin 3.5, Globulin 2.2, Albumin/Globulin Ratio 1.5, Amylase Level 45, Lipase 17 Current Medications Medications (Trade) Dose Ordered Sig/Adrienne Route PRN Reason Start Time Stop Time Status Last Admin Dose Admin Acetaminophen (Tylenol) 650 mg Q4H PRN ORAL fever>100.5 10/07/16 11:00 11/06/16 10:59 Al Hydroxide/Mg Hydroxide (Mylanta II) 30 ml Q6H PRN ORAL dyspepsia 10/07/16 11:00 11/06/16 10:59 Amlodipine Besylate 10 mg 10 mg DAILY ORAL 10/08/16 09:00 11/07/16 08:59 10/08/16 09:20 Dextrose STAT PRN IV Hypoglycemia 10/07/16 11:00 11/06/16 10:59 Dextrose/Sodium Chloride (D5 0.45% NS) 1,000 ml @ 75 mls/hr [id number] IV 10/07/16 11:00 11/06/16 10:59 10/08/16 04:30 Diphenhydramine HCl (Benadryl) 25 mg Q6H PRN ORAL Itching/Pruritis 10/07/16 11:00 11/06/16 10:59 Heparin Sodium (Porcine) (Heparin 5000 units/ml) 5,000 units EVERY 12 HOURS SUBQ 10/07/16 21:00 11/06/16 20:59 10/07/16 21:54 Loperamide HCl (Imodium) 2 mg Q4H PRN ORAL Diarrhea 10/08/16 10:30 11/07/16 10:29 10/08/16 14:47 Mesalamine (Asacol) 1,600 mg THREE TIMES A DAY ORAL 10/07/16 18:00 11/06/16 17:59 10/08/16 13:35 Morphine Sulfate (Morphine Sulfate) 2 mg Q4H PRN IVP severe Pain (Pain Scale 7-10) 10/07/16 11:00 10/14/16 10:59 10/08/16 14:48 Nitroglycerin (Ntg) 0.4 mg Q5M X 3 DOSES PRN SL Prn Chest Pain 10/07/16 11:00 11/06/16 10:59 Ondansetron HCl (Zofran) 4 mg Q6H PRN IVP Nausea & Vomiting 10/07/16 11:00 11/06/16 10:59 Pantoprazole (Protonix) 40 mg DAILY ORAL 10/09/16 09:00 11/08/16 08:59 Piperacillin Sod/ Tazobactam Sod/ Sodium Chloride (Zosyn/Sodium Chloride) 110 ml @ 27.5 mls/hr EVERY 8 HOURS IVPB 10/07/16 14:00 10/14/16 13:59 10/08/16 13:36 Polyethylene Glycol (Miralax) 17 gm HSPRN PRN ORAL Constipation 10/07/16 21:00 11/06/16 20:59 Temazepam (Restoril) 15 mg HSPRN PRN ORAL Insomnia 10/07/16 21:00 10/14/16 20:59 KATHI GOODSON Oct 08, 2016 15:58
[2016-10-08] MEDS ORDERED: D5 1/2NS 1000ml IV ONE (17:09)
[2016-10-08] MEDS ORDERED: Tubing IV Secondary IV ONE (17:09)
[2016-10-09] MEDS: D5 1/2NS 1,000 ML IV SCH ×3 (01:27→21:13)
[2016-10-09 04:00] VITALS: BP 120/78
[2016-10-09] MEDS: Piperacillin/Tazobactam 3.375 GM in NS 110 ML IVPB SCH ×3 (06:13→21:13)
[2016-10-09 07:29] LABS: EOSINOPHILS % (AUTO) 0.6 % (0.0-3.0); LYMPHOCYTES % (AUTO) 46.8 % (20.0-45.0); MEAN CORPUSCULAR HEMOGLOBIN 30.8 PG (27.0-31.0); MEAN CORPUSCULAR HGB CONC 32.9 G/DL (32.0-36.0); MEAN CORPUSCULAR VOLUME 93 FL (80-99); MEAN PLATELET VOLUME 8.8 FL (6.5-10.1); MONOCYTES % (AUTO) 7.3 % (1.0-10.0); NEUTROPHILS % (AUTO) 44.3 % (45.0-75.0); PLATELET COUNT 184 K/UL (150-450); RED BLOOD COUNT 4.29 M/UL (4.70-6.10); RED CELL DISTRIBUTION WIDTH 11.4 % (11.6-14.8); WHITE BLOOD COUNT 4.2 K/UL (4.8-10.8)
[2016-10-09 07:40] LABS: ALANINE AMINOTRANSFERASE 16 U/L (3-41); ALBUMIN/GLOBULIN RATIO 1.5 (1.0-2.7); ANION GAP 8 (5-15); ASPARTATE AMINO TRANSFERASE 11 U/L (5-40); CALCIUM 8.8 mg/dL (8.6-10.2); CARBON DIOXIDE 28 mEQ/L (20-30); CHLORIDE 104 mEQ/L (98-107); GLOMERULAR FILTRATION RATE > 60 mL/min (>60); HEMOLYSIS 7; POTASSIUM 3.5 mEQ/L (3.4-4.9); SODIUM 140 mEQ/L (135-145); TOTAL PROTEIN 5.7 g/dL (6.6-8.7)
[2016-10-09 07:49] LABS: CRP QUANT < 0.3 mg/dL (< 0.5); MAGNESIUM 2.1 mg/dL (1.7-2.5); PHOSPHORUS 3.2 mg/dL (2.5-4.8)
[2016-10-09 08:00] VITALS: BP 137/98
[2016-10-09] MEDS ORDERED: D5 1/2NS 1000ml IV ONE (09:04)
[2016-10-09] MEDS: Loperamide 2mg cap ORAL PRN (09:19)
[2016-10-09] MEDS: Heparin 5000 units/ml inj SUBQ SCH ×2 (09:21→21:00)
[2016-10-09] MEDS: Morphine Sulfate 2mg/ml Inj IVP PRN ×2 (09:36→18:17)
--- NOTE | 2016-10-09 10:51 | GI Progress Note ---
Assessment/Plan Problems: (1) Diarrhea ICD Codes: R19.7 - Diarrhea, unspecified SNOMED: 60467661 (2) Dehydration ICD Codes: E86.0 - Dehydration SNOMED: 48118477 (3) Intractable nausea and vomiting ICD Codes: R11.2 - Nausea with vomiting, unspecified SNOMED: 761175911, 839974300 (4) Crohn disease ICD Codes: K50.90 - Crohn's disease, unspecified, without complications SNOMED: 08233193 Qualifiers: Qualified Codes: K50.918 - Crohn's disease, unspecified, with other complication (5) Abdominal pain ICD Codes: R10.9 - Unspecified abdominal pain SNOMED: 16430732 Qualifiers: Qualified Codes: R10.31 - Right lower quadrant pain Status: stable, unchanged Status Narrative Discussed with Dr. Waterman. Assessment/Plan ESR, C-reactive protein to r/o Crohns flare >> negative iron panel unremarkable Crohn's management - Asacol 1600 TID, hold Prednisone at this time given negative ESR, C-reactive - fu cdiff, stool culture >> Lomotil prn ow fiber/low residual diet zofran prn pain management electrolyte correction ppi abx fu labs Subjective Subjective continues to have large amounts of diarrhea x 15 today. Objective Last 24 Hour Vital Signs Date Time Temp Pulse Resp B/P Pulse Ox O2 Delivery O2 Flow Rate FiO2 10/09/16 09:19 85 137/98 10/09/16 08:00 97.7 85 18 137/98 97 Room Air 10/09/16 04:00 96.8 56 18 120/78 97 Room Air 10/08/16 20:00 97.7 97 18 113/74 96 Room Air 10/08/16 15:50 98.1 64 19 150/87 95 Room Air 10/08/16 11:45 97.5 54 21 116/71 95 Room Air Intake and Output 10/08/16 10/09/16 19:00 07:00 Intake Total 555 ml 635.0 ml Balance 555 ml 635.0 ml Intake Oral 480 ml IV Total 75 ml 635.0 ml # Voids 2 Laboratory Tests Test 10/09/16 06:05 White Blood Count 4.2 K/UL (4.8-10.8) L Red Blood Count 4.29 M/UL (4.70-6.10) L Hemoglobin 13.2 G/DL (14.2-18.0) L Hematocrit 40.1 % (42.0-52.0) L Mean Corpuscular Volume 93 FL (80-99) Mean Corpuscular Hemoglobin 30.8 PG (27.0-31.0) Mean Corpuscular Hemoglobin Concent 32.9 G/DL (32.0-36.0) Red Cell Distribution Width 11.4 % (11.6-14.8) L Platelet Count 184 K/UL (150-450) Mean Platelet Volume 8.8 FL (6.5-10.1) Neutrophils (%) (Auto) 44.3 % (45.0-75.0) L Lymphocytes (%) (Auto) 46.8 % (20.0-45.0) H Monocytes (%) (Auto) 7.3 % (1.0-10.0) Eosinophils (%) (Auto) 0.6 % (0.0-3.0) Basophils (%) (Auto) 1.0 % (0.0-2.0) Erythrocyte Sedimentation Rate 13 MM/HR (0-15) Sodium Level 140 mEQ/L (135-145) Potassium Level 3.5 mEQ/L (3.4-4.9) Chloride Level 104 mEQ/L (98-107) Carbon Dioxide Level 28 mEQ/L (20-30) Anion Gap 8 (5-15) Blood Urea Nitrogen 10 mg/dL (7-23) Creatinine 1.0 mg/dL (0.7-1.2) Estimat Glomerular Filtration Rate > 60 mL/min (>60) Glucose Level 94 mg/dL (74-106) Calcium Level 8.8 mg/dL (8.6-10.2) Phosphorus Level 3.2 mg/dL (2.5-4.8) Magnesium Level 2.1 mg/dL (1.7-2.5) Total Bilirubin 0.4 mg/dL (0.0-1.2) Aspartate Amino Transf (AST/SGOT) 11 U/L (5-40) Alanine Aminotransferase (ALT/SGPT) 16 U/L (3-41) Alkaline Phosphatase 46 U/L (40-129) C-Reactive Protein, Quantitative < 0.3 mg/dL (< 0.5) Total Protein 5.7 g/dL (6.6-8.7) L Albumin 3.5 g/dL (3.5-5.2) Globulin 2.2 g/dL Albumin/Globulin Ratio 1.5 (1.0-2.7) Height (Feet): 5 Height (Inches): 9.00 Weight (Pounds): 250 General Appearance: no apparent distress, alert Cardiovascular: normal rate Respiratory/Chest: normal breath sounds, no respiratory distress Abdominal Exam: normal bowel sounds, non tender, soft Genitourinary/Rectal: normal rectal exam Extremities: normal range of motion Christine Gonzales N.P. Oct 09, 2016 10:51
[2016-10-09 12:40] VITALS: BP 131/77
--- NOTE | 2016-10-09 14:12 | Infectious Diseases Prog Note ---
Assessment/Plan Assessment/Plan ID consult dictated # [id number] Subjective Allergies: Coded Allergies: No Known Allergies (Unverified , 10/05/16) Objective Vital Signs Last 24 Hour Vital Signs Date Time Temp Pulse Resp B/P Pulse Ox O2 Delivery O2 Flow Rate FiO2 10/09/16 12:40 98.2 78 18 131/77 97 Room Air 10/09/16 09:19 85 137/98 10/09/16 08:00 97.7 85 18 137/98 97 Room Air 10/09/16 04:00 96.8 56 18 120/78 97 Room Air 10/08/16 20:00 97.7 97 18 113/74 96 Room Air 10/08/16 15:50 98.1 64 19 150/87 95 Room Air Height (Feet): 5 Height (Inches): 9.00 Weight (Pounds): 250 Microbiology Date/Time Source Procedure Growth Status 10/08/16 08:15 Stool Clostridium difficile Toxin Assay - Final Complete 10/07/16 04:25 Urine,Clean Catch Urine Culture - Preliminary Resulted Laboratory Tests Test 10/09/16 06:05 White Blood Count 4.2 K/UL (4.8-10.8) L Red Blood Count 4.29 M/UL (4.70-6.10) L Hemoglobin 13.2 G/DL (14.2-18.0) L Hematocrit 40.1 % (42.0-52.0) L Mean Corpuscular Volume 93 FL (80-99) Mean Corpuscular Hemoglobin 30.8 PG (27.0-31.0) Mean Corpuscular Hemoglobin Concent 32.9 G/DL (32.0-36.0) Red Cell Distribution Width 11.4 % (11.6-14.8) L Platelet Count 184 K/UL (150-450) Mean Platelet Volume 8.8 FL (6.5-10.1) Neutrophils (%) (Auto) 44.3 % (45.0-75.0) L Lymphocytes (%) (Auto) 46.8 % (20.0-45.0) H Monocytes (%) (Auto) 7.3 % (1.0-10.0) Eosinophils (%) (Auto) 0.6 % (0.0-3.0) Basophils (%) (Auto) 1.0 % (0.0-2.0) Erythrocyte Sedimentation Rate 13 MM/HR (0-15) Sodium Level 140 mEQ/L (135-145) Potassium Level 3.5 mEQ/L (3.4-4.9) Chloride Level 104 mEQ/L (98-107) Carbon Dioxide Level 28 mEQ/L (20-30) Anion Gap 8 (5-15) Blood Urea Nitrogen 10 mg/dL (7-23) Creatinine 1.0 mg/dL (0.7-1.2) Estimat Glomerular Filtration Rate > 60 mL/min (>60) Glucose Level 94 mg/dL (74-106) Calcium Level 8.8 mg/dL (8.6-10.2) Phosphorus Level 3.2 mg/dL (2.5-4.8) Magnesium Level 2.1 mg/dL (1.7-2.5) Total Bilirubin 0.4 mg/dL (0.0-1.2) Aspartate Amino Transf (AST/SGOT) 11 U/L (5-40) Alanine Aminotransferase (ALT/SGPT) 16 U/L (3-41) Alkaline Phosphatase 46 U/L (40-129) C-Reactive Protein, Quantitative < 0.3 mg/dL (< 0.5) Total Protein 5.7 g/dL (6.6-8.7) L Albumin 3.5 g/dL (3.5-5.2) Globulin 2.2 g/dL Albumin/Globulin Ratio 1.5 (1.0-2.7) Current Medications Medications (Trade) Dose Ordered Sig/Adrienne Route PRN Reason Start Time Stop Time Status Last Admin Dose Admin Acetaminophen (Tylenol) 650 mg Q4H PRN ORAL fever>100.5 10/07/16 11:00 11/06/16 10:59 Al Hydroxide/Mg Hydroxide (Mylanta II) 30 ml Q6H PRN ORAL dyspepsia 10/07/16 11:00 11/06/16 10:59 Amlodipine Besylate 10 mg 10 mg DAILY ORAL 10/08/16 09:00 11/07/16 08:59 10/09/16 09:19 Dextrose STAT PRN IV Hypoglycemia 10/07/16 11:00 11/06/16 10:59 Dextrose/Sodium Chloride (D5 0.45% NS) 1,000 ml @ 75 mls/hr [id number] IV 10/07/16 11:00 11/06/16 10:59 10/09/16 01:27 Diphenhydramine HCl (Benadryl) 25 mg Q6H PRN ORAL Itching/Pruritis 10/07/16 11:00 11/06/16 10:59 Diphenoxylate HCl/ Atropine (Lomotil) 2.5 mg Q4H PRN ORAL Diarrhea 10/09/16 10:30 11/08/16 10:29 Heparin Sodium (Porcine) (Heparin 5000 units/ml) 5,000 units EVERY 12 HOURS SUBQ 10/07/16 21:00 11/06/16 20:59 10/09/16 09:21 Mesalamine (Asacol) 1,600 mg THREE TIMES A DAY ORAL 10/07/16 18:00 11/06/16 17:59 10/09/16 13:50 Morphine Sulfate (Morphine Sulfate) 2 mg Q4H PRN IVP severe Pain (Pain Scale 7-10) 10/07/16 11:00 10/14/16 10:59 10/09/16 09:36 Nitroglycerin (Ntg) 0.4 mg Q5M X 3 DOSES PRN SL Prn Chest Pain 10/07/16 11:00 11/06/16 10:59 Ondansetron HCl (Zofran) 4 mg Q6H PRN IVP Nausea & Vomiting 10/07/16 11:00 11/06/16 10:59 Pantoprazole (Protonix) 40 mg DAILY ORAL 10/09/16 09:00 11/08/16 08:59 10/09/16 09:19 Piperacillin Sod/ Tazobactam Sod/ Sodium Chloride (Zosyn/Sodium Chloride) 110 ml @ 27.5 mls/hr EVERY 8 HOURS IVPB 10/07/16 14:00 10/14/16 13:59 10/09/16 13:50 Polyethylene Glycol (Miralax) 17 gm HSPRN PRN ORAL Constipation 10/07/16 21:00 11/06/16 20:59 Temazepam (Restoril) 15 mg HSPRN PRN ORAL Insomnia 10/07/16 21:00 10/14/16 20:59 JAMIE DE LA TORRE Oct 09, 2016 14:12
--- NOTE | 2016-10-09 15:20 | Pulmonology Progress Note ---
Assessment/Plan Problems: (1) Crohn disease (2) Intractable nausea and vomiting (3) Abdominal pain (4) UTI (urinary tract infection) (5) Dehydration Assessment/Plan f/u gi recommendations IV abx claims to have > 15 times diarrhea check electrolytes. Subjective ROS Limited/Unobtainable: No Constitutional: Reports: no symptoms HEENT: Repors: no symptoms Allergies: Coded Allergies: No Known Allergies (Unverified , 10/05/16) Objective Last 24 Hour Vital Signs Date Time Temp Pulse Resp B/P Pulse Ox O2 Delivery O2 Flow Rate FiO2 10/09/16 12:40 98.2 78 18 131/77 97 Room Air 10/09/16 09:19 85 137/98 10/09/16 08:00 97.7 85 18 137/98 97 Room Air 10/09/16 04:00 96.8 56 18 120/78 97 Room Air 10/08/16 20:00 97.7 97 18 113/74 96 Room Air 10/08/16 15:50 98.1 64 19 150/87 95 Room Air Intake and Output 10/08/16 10/09/16 19:00 07:00 Intake Total 555 ml 635.0 ml Balance 555 ml 635.0 ml Intake Oral 480 ml IV Total 75 ml 635.0 ml # Voids 2 General Appearance: WD/WN HEENT: normocephalic, atraumatic Respiratory/Chest: chest wall non-tender, lungs clear Cardiovascular: normal peripheral pulses, normal rate Abdomen: normal bowel sounds, soft, non tender, no organomegaly Extremities: no cyanosis, no clubbing Microbiology Date/Time Source Procedure Growth Status 10/08/16 08:15 Stool Clostridium difficile Toxin Assay - Final Complete 10/07/16 04:25 Urine,Clean Catch Urine Culture - Preliminary Resulted Laboratory Tests 10/09/16 06:05: White Blood Count 4.2L, Red Blood Count 4.29L, Hemoglobin 13.2L, Hematocrit 40.1L, Mean Corpuscular Volume 93, Mean Corpuscular Hemoglobin 30.8, Mean Corpuscular Hemoglobin Concent 32.9, Red Cell Distribution Width 11.4L, Platelet Count 184, Mean Platelet Volume 8.8, Neutrophils (%) (Auto) 44.3L, Lymphocytes (%) (Auto) 46.8H, Monocytes (%) (Auto) 7.3, Eosinophils (%) (Auto) 0.6, Basophils (%) (Auto) 1.0, Erythrocyte Sedimentation Rate 13, Sodium Level 140, Potassium Level 3.5, Chloride Level 104, Carbon Dioxide Level 28, Anion Gap 8, Blood Urea Nitrogen 10, Creatinine 1.0, Estimat Glomerular Filtration Rate > 60, Glucose Level 94, Calcium Level 8.8, Phosphorus Level 3.2, Magnesium Level 2.1, Total Bilirubin 0.4, Aspartate Amino Transf (AST/SGOT) 11, Alanine Aminotransferase (ALT/SGPT) 16, Alkaline Phosphatase 46, C-Reactive Protein, Quantitative < 0.3, Total Protein 5.7L, Albumin 3.5, Globulin 2.2, Albumin/ Globulin Ratio 1.5 Current Medications Medications (Trade) Dose Ordered Sig/Adrienne Route PRN Reason Start Time Stop Time Status Last Admin Dose Admin Acetaminophen (Tylenol) 650 mg Q4H PRN ORAL fever>100.5 10/07/16 11:00 11/06/16 10:59 Al Hydroxide/Mg Hydroxide (Mylanta II) 30 ml Q6H PRN ORAL dyspepsia 10/07/16 11:00 11/06/16 10:59 Amlodipine Besylate 10 mg 10 mg DAILY ORAL 10/08/16 09:00 11/07/16 08:59 10/09/16 09:19 Dextrose STAT PRN IV Hypoglycemia 10/07/16 11:00 11/06/16 10:59 Dextrose/Sodium Chloride (D5 0.45% NS) 1,000 ml @ 75 mls/hr [id number] IV 10/07/16 11:00 11/06/16 10:59 10/09/16 01:27 Diphenhydramine HCl (Benadryl) 25 mg Q6H PRN ORAL Itching/Pruritis 10/07/16 11:00 11/06/16 10:59 Diphenoxylate HCl/ Atropine (Lomotil) 2.5 mg Q4H PRN ORAL Diarrhea 10/09/16 10:30 11/08/16 10:29 Heparin Sodium (Porcine) (Heparin 5000 units/ml) 5,000 units EVERY 12 HOURS SUBQ 10/07/16 21:00 11/06/16 20:59 10/09/16 09:21 Mesalamine (Asacol) 1,600 mg THREE TIMES A DAY ORAL 10/07/16 18:00 11/06/16 17:59 10/09/16 13:50 Morphine Sulfate (Morphine Sulfate) 2 mg Q4H PRN IVP severe Pain (Pain Scale 7-10) 10/07/16 11:00 10/14/16 10:59 10/09/16 09:36 Nitroglycerin (Ntg) 0.4 mg Q5M X 3 DOSES PRN SL Prn Chest Pain 10/07/16 11:00 11/06/16 10:59 Ondansetron HCl (Zofran) 4 mg Q6H PRN IVP Nausea & Vomiting 10/07/16 11:00 11/06/16 10:59 Pantoprazole (Protonix) 40 mg DAILY ORAL 10/09/16 09:00 11/08/16 08:59 10/09/16 09:19 Piperacillin Sod/ Tazobactam Sod/ Sodium Chloride (Zosyn/Sodium Chloride) 110 ml @ 27.5 mls/hr EVERY 8 HOURS IVPB 10/07/16 14:00 10/14/16 13:59 10/09/16 13:50 Polyethylene Glycol (Miralax) 17 gm HSPRN PRN ORAL Constipation 10/07/16 21:00 11/06/16 20:59 Temazepam (Restoril) 15 mg HSPRN PRN ORAL Insomnia 10/07/16 21:00 10/14/16 20:59 KATHI GOODSON Oct 09, 2016 15:20
[2016-10-09] MEDS: Lomotil 2.5mg tab ORAL PRN (17:29)
[2016-10-09 20:00] VITALS: BP 90/49
--- NOTE | 2016-10-09 21:45 | Consultation ---
DATE OF CONSULTATION: 10/09/2016 INFECTIOUS DISEASE CONSULT This consult is for coverage of Dr. Cardona. PRIMARY ATTENDING PHYSICIAN: Layla Cuenca M.D. REASON FOR CONSULT: Diarrhea and Crohn's disease. HISTORY OF PRESENT ILLNESS: The patient is a 41-year-old white male, admitted on 10/07/2016 because of right-sided abdominal pain and diarrhea. Symptoms became worse during the treatment. The patient had bad diarrhea. The patient had a CT scan of the abdomen and pelvis that was suspected of left kidney disease. PAST MEDICAL HISTORY: Crohn's disease for four years. Usually, the patient gets sick once in a year. MEDICATIONS: Lomotil, Protonix, amlodipine, heparin, MiraLax, temazepam, Asacol, Zosyn, Tylenol, morphine sulfate, Zofran, and Mylanta. ALLERGIES: No known drug allergies. SOCIAL HISTORY: Lives alone. No history of alcohol, drug abuse, or smoking. The patient has no pets. No history of travel outside of the [place]. No sick contacts. 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 REVIEW OF SYSTEMS: No fevers. No chills. No sore throat. No coughing. Had nausea and vomiting at the time of admission. Diarrhea and abdominal pain on the right side. No problem passing urine. PHYSICAL EXAMINATION: VITAL SIGNS: Temperature 98.2 degrees, pulse 78, and blood pressure 131/77. GENERAL APPEARANCE: In no acute distress. Seems to be obese. BMI is 36.9. HEAD AND NECK: [place] conjunctivae. No oral lesions. HEART: S1 and S2 regular. LUNGS: Clear. ABDOMEN: Obese and soft. Mildly tender in the right side. EXTREMITIES: He has no edema. LABORATORY DATA: WBC 4.2, hemoglobin 13.2, hematocrit 40.1, and platelets is 184,000. Sodium 140, potassium 3.5, chloride 104, bicarbonate 28, BUN 10, and creatinine 1. CT scan of the abdomen showed a slightly decreased opacification of the left kidney, questionable nephritis, mild fatty liver, and bilateral renal stones that are nonobstructive. UA showed WBC of 5 to 10. IMPRESSION: Diarrhea, likely secondary to Crohn's disease activation, abdominal pain, nausea, vomiting, and renal calculi. We will try to rule out urinary tract infection. RECOMMENDATIONS: We will continue Zosyn. We will follow up the cultures. So far, C. diff was negative. We will discuss the case with GI doctor. At the end of my exam, I thank Dr. Cuenca for involving me in the care of this patient. John Lopez M.D. DR: JUVENAL JOB#: [id number] CC:
[2016-10-10] MEDS: Piperacillin/Tazobactam 3.375 GM in NS 110 ML IVPB SCH ×3 (06:50→22:26)
[2016-10-10 07:15] LABS: EOSINOPHILS % (AUTO) 2.1 % (0.0-3.0); LYMPHOCYTES % (AUTO) 45.8 % (20.0-45.0); MEAN CORPUSCULAR HEMOGLOBIN 31.5 PG (27.0-31.0); MEAN CORPUSCULAR HGB CONC 34.3 G/DL (32.0-36.0); MEAN CORPUSCULAR VOLUME 92 FL (80-99); MEAN PLATELET VOLUME 8.4 FL (6.5-10.1); MONOCYTES % (AUTO) 7.1 % (1.0-10.0); PLATELET COUNT 179 K/UL (150-450); RED BLOOD COUNT 4.49 M/UL (4.70-6.10); WHITE BLOOD COUNT 4.2 K/UL (4.8-10.8)
[2016-10-10 07:35] LABS: ANION GAP 9 (5-15); CALCIUM 9.1 mg/dL (8.6-10.2); CARBON DIOXIDE 25 mEQ/L (20-30); CHLORIDE 104 mEQ/L (98-107); GLOMERULAR FILTRATION RATE > 60 mL/min (>60); HEMOLYSIS 8; POTASSIUM 3.8 mEQ/L (3.4-4.9); SODIUM 138 mEQ/L (135-145)
[2016-10-10 08:00] VITALS: BP 105/55
[2016-10-10] MEDS: Heparin 5000 units/ml inj SUBQ SCH ×2 (09:00→22:41)
[2016-10-10] MEDS: Lomotil 2.5mg tab ORAL PRN (09:47)
--- NOTE | 2016-10-10 11:35 | General Progress Note ---
Assessment/Plan Assessment/Plan Assessment/Plan Problems: (1) Diarrhea ICD Codes: R19.7 - Diarrhea, unspecified SNOMED: 00255974 (2) Dehydration ICD Codes: E86.0 - Dehydration SNOMED: 50728049 (3) Intractable nausea and vomiting ICD Codes: R11.2 - Nausea with vomiting, unspecified SNOMED: 036807273, 371847244 (4) Crohn disease ICD Codes: K50.90 - Crohn's disease, unspecified, without complications SNOMED: 62332916 Qualifiers: Qualified Codes: K50.918 - Crohn's disease, unspecified, with other complication (5) Abdominal pain ICD Codes: R10.9 - Unspecified abdominal pain SNOMED: 84775124 Qualifiers: Qualified Codes: R10.31 - Right lower quadrant pain Status: stable Assessment/Plan ESR, C-reactive protein to r/o Crohns flare >> negative iron panel unremarkable cdiff negative Crohn's management - Asacol 1600 TID, hold Prednisone at this time. - fu stool culture >> Imodium prn, consider Lomotil if diarrhea persists adv to low fiber/low residual diet zofran prn pain management electrolyte correction ppi abx fu labs Subjective Allergies: Coded Allergies: No Known Allergies (Unverified , 10/05/16) Subjective tolerating PO low residue diet 16x BM yesterday some (R) sided discomfort Objective Last 24 Hour Vital Signs Date Time Temp Pulse Resp B/P Pulse Ox O2 Delivery O2 Flow Rate FiO2 10/10/16 09:00 72 105/55 10/10/16 08:00 97.9 72 16 105/55 96 Room Air 10/09/16 20:00 97.5 65 20 90/49 98 Room Air 10/09/16 12:40 98.2 78 18 131/77 97 Room Air Intake and Output 10/09/16 10/10/16 19:00 07:00 Intake Total 1435.0 ml 1085.0 ml Balance 1435.0 ml 1085.0 ml Intake Oral 840 ml 300 ml IV Total 595.0 ml 785.0 ml # Voids 5 2 # Bowel Movements 5 2 Laboratory Tests 10/10/16 04:50: White Blood Count 4.2L, Red Blood Count 4.49L, Hemoglobin 14.1L, Hematocrit 41.2L, Mean Corpuscular Volume 92, Mean Corpuscular Hemoglobin 31.5H, Mean Corpuscular Hemoglobin Concent 34.3, Red Cell Distribution Width 11.0L, Platelet Count 179, Mean Platelet Volume 8.4, Neutrophils (%) (Auto) 44.0L, Lymphocytes (%) (Auto) 45.8H, Monocytes (%) (Auto) 7.1, Eosinophils (%) (Auto) 2.1, Basophils (%) (Auto) 1.0, Sodium Level 138, Potassium Level 3.8, Chloride Level 104, Carbon Dioxide Level 25, Anion Gap 9, Blood Urea Nitrogen 11, Creatinine 1.0, Estimat Glomerular Filtration Rate > 60, Glucose Level 91, Calcium Level 9.1 Height (Feet): 5 Height (Inches): 9.00 Weight (Pounds): 250 Objective Obese WM NCAT supple CTA RRR Soft (+) RLQ TTP no edema non focal DUGLAS ARNGEL Oct 10, 2016 11:35
[2016-10-10 12:00] VITALS: BP 134/90
[2016-10-10] MEDS: D5 1/2NS 1,000 ML IV SCH (12:02)
[2016-10-10 16:00] VITALS: BP 122/72
--- NOTE | 2016-10-10 16:01 | Pulmonology Progress Note ---
Assessment/Plan Problems: (1) Crohn disease (2) Intractable nausea and vomiting (3) Abdominal pain (4) UTI (urinary tract infection) (5) Dehydration Assessment/Plan f/u gi recommendations IV abx claims to have > 15 times diarrhea check electrolytes. Subjective ROS Limited/Unobtainable: No Allergies: Coded Allergies: No Known Allergies (Unverified , 10/05/16) Objective Last 24 Hour Vital Signs Date Time Temp Pulse Resp B/P Pulse Ox O2 Delivery O2 Flow Rate FiO2 10/10/16 12:00 97.2 70 20 134/90 98 Room Air 10/10/16 09:00 72 105/55 10/10/16 08:00 97.9 72 16 105/55 96 Room Air 10/09/16 20:00 97.5 65 20 90/49 98 Room Air Intake and Output 10/09/16 10/10/16 19:00 07:00 Intake Total 1435.0 ml 1160.0 ml Balance 1435.0 ml 1160.0 ml Intake Oral 840 ml 300 ml IV Total 595.0 ml 860.0 ml # Voids 5 2 # Bowel Movements 5 2 Objective General Appearance: WD/WN HEENT: normocephalic, atraumatic Respiratory/Chest: chest wall non-tender, lungs clear Breasts: no masses Cardiovascular: normal peripheral pulses, normal rate Abdomen: normal bowel sounds, soft, non tender Genitourinary: normal external genitalia Extremities: no cyanosis Skin: no rash 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, normal mood/affect Lymphatic: no groin adenopathy Microbiology Date/Time Source Procedure Growth Status 10/08/16 08:15 Stool Clostridium difficile Toxin Assay - Final Complete Laboratory Tests 10/10/16 04:50: White Blood Count 4.2L, Red Blood Count 4.49L, Hemoglobin 14.1L, Hematocrit 41.2L, Mean Corpuscular Volume 92, Mean Corpuscular Hemoglobin 31.5H, Mean Corpuscular Hemoglobin Concent 34.3, Red Cell Distribution Width 11.0L, Platelet Count 179, Mean Platelet Volume 8.4, Neutrophils (%) (Auto) 44.0L, Lymphocytes (%) (Auto) 45.8H, Monocytes (%) (Auto) 7.1, Eosinophils (%) (Auto) 2.1, Basophils (%) (Auto) 1.0, Sodium Level 138, Potassium Level 3.8, Chloride Level 104, Carbon Dioxide Level 25, Anion Gap 9, Blood Urea Nitrogen 11, Creatinine 1.0, Estimat Glomerular Filtration Rate > 60, Glucose Level 91, Calcium Level 9.1 Current Medications Medications (Trade) Dose Ordered Sig/Adrienne Route PRN Reason Start Time Stop Time Status Last Admin Dose Admin Acetaminophen (Tylenol) 650 mg Q4H PRN ORAL fever>100.5 10/07/16 11:00 11/06/16 10:59 Al Hydroxide/Mg Hydroxide (Mylanta II) 30 ml Q6H PRN ORAL dyspepsia 10/07/16 11:00 11/06/16 10:59 Amlodipine Besylate 10 mg 10 mg DAILY ORAL 10/08/16 09:00 11/07/16 08:59 10/09/16 09:19 Dextrose STAT PRN IV Hypoglycemia 10/07/16 11:00 11/06/16 10:59 Dextrose/Sodium Chloride (D5 0.45% NS) 1,000 ml @ 75 mls/hr [id number] IV 10/07/16 11:00 11/06/16 10:59 10/10/16 12:02 Diphenhydramine HCl (Benadryl) 25 mg Q6H PRN ORAL Itching/Pruritis 10/07/16 11:00 11/06/16 10:59 Diphenoxylate HCl/ Atropine (Lomotil) 2.5 mg Q4H PRN ORAL Diarrhea 10/09/16 10:30 11/08/16 10:29 10/10/16 09:47 Heparin Sodium (Porcine) (Heparin 5000 units/ml) 5,000 units EVERY 12 HOURS SUBQ 10/07/16 21:00 11/06/16 20:59 10/09/16 09:21 Mesalamine (Asacol) 1,600 mg THREE TIMES A DAY ORAL 10/07/16 18:00 11/06/16 17:59 10/10/16 11:59 Morphine Sulfate (Morphine Sulfate) 2 mg Q4H PRN IVP severe Pain (Pain Scale 7-10) 10/07/16 11:00 10/14/16 10:59 10/09/16 18:17 Nitroglycerin (Ntg) 0.4 mg Q5M X 3 DOSES PRN SL Prn Chest Pain 10/07/16 11:00 11/06/16 10:59 Ondansetron HCl (Zofran) 4 mg Q6H PRN IVP Nausea & Vomiting 10/07/16 11:00 11/06/16 10:59 Pantoprazole (Protonix) 40 mg DAILY ORAL 10/09/16 09:00 11/08/16 08:59 10/10/16 11:57 Piperacillin Sod/ Tazobactam Sod/ Sodium Chloride (Zosyn/Sodium Chloride) 110 ml @ 27.5 mls/hr EVERY 8 HOURS IVPB 10/07/16 14:00 10/14/16 13:59 10/10/16 15:07 Polyethylene Glycol (Miralax) 17 gm HSPRN PRN ORAL Constipation 10/07/16 21:00 11/06/16 20:59 Temazepam (Restoril) 15 mg HSPRN PRN ORAL Insomnia 10/07/16 21:00 10/14/16 20:59 KATHI GOODSON Oct 10, 2016 16:01
[2016-10-10] MEDS: Morphine Sulfate 2mg/ml Inj IVP PRN (18:04)
[2016-10-11] VITALS: BP 115/72
[2016-10-11 04:00] VITALS: BP 124/80
[2016-10-11] MEDS: Piperacillin/Tazobactam 3.375 GM in NS 110 ML IVPB SCH (05:42)
[2016-10-11] MEDS: D5 1/2NS 1,000 ML IV SCH ×2 (05:43→20:45)
[2016-10-11] MEDS: Morphine Sulfate 2mg/ml Inj IVP PRN ×2 (06:02→10:31)
[2016-10-11 07:47] VITALS: BP 138/85
--- NOTE | 2016-10-11 08:13 | Infectious Diseases Prog Note ---
Assessment/Plan Assessment/Plan A: Diarrhea improved Crohn's disease Abdominal pain P: discontinue Zosyn Case was D/W Dr Branch Subjective ROS Limited/Unobtainable: No Constitutional: Reports: other - decreased appetite Respiratory: Reports: no symptoms Gastrointestinal/Abdominal: Reports: diarrhea, other - abdominal pain controlled Genitourinary: Reports: no symptoms Allergies: Coded Allergies: No Known Allergies (Unverified , 10/05/16) Objective Vital Signs Last 24 Hour Vital Signs Date Time Temp Pulse Resp B/P Pulse Ox O2 Delivery O2 Flow Rate FiO2 10/11/16 07:47 97.2 65 18 138/85 99 Room Air 10/11/16 04:00 96.8 56 18 124/80 98 Room Air 10/11/16 00:00 97.7 64 18 115/72 97 Room Air 10/10/16 16:00 97.3 65 20 122/72 97 Room Air 10/10/16 12:00 97.2 70 20 134/90 98 Room Air 10/10/16 09:00 72 105/55 Height (Feet): 5 Height (Inches): 9.00 Weight (Pounds): 250 General Appearance: no acute distress HEENT: mucous membranes moist Respiratory/Chest: lungs clear Cardiovascular: normal rate Abdomen: soft, non tender Extremities: no edema Neurologic/Psychiatric: alert, oriented x 3, responsive Microbiology Date/Time Source Procedure Growth Status 10/08/16 08:15 Stool Clostridium difficile Toxin Assay - Final Complete Current Medications Medications (Trade) Dose Ordered Sig/Adrienne Route PRN Reason Start Time Stop Time Status Last Admin Dose Admin Acetaminophen (Tylenol) 650 mg Q4H PRN ORAL fever>100.5 10/07/16 11:00 11/06/16 10:59 Al Hydroxide/Mg Hydroxide (Mylanta II) 30 ml Q6H PRN ORAL dyspepsia 10/07/16 11:00 11/06/16 10:59 Amlodipine Besylate 10 mg 10 mg DAILY ORAL 10/08/16 09:00 11/07/16 08:59 10/09/16 09:19 Dextrose STAT PRN IV Hypoglycemia 10/07/16 11:00 11/06/16 10:59 Dextrose/Sodium Chloride (D5 0.45% NS) 1,000 ml @ 75 mls/hr [id number] IV 10/07/16 11:00 11/06/16 10:59 10/11/16 05:43 Diphenhydramine HCl (Benadryl) 25 mg Q6H PRN ORAL Itching/Pruritis 10/07/16 11:00 11/06/16 10:59 Diphenoxylate HCl/ Atropine (Lomotil) 2.5 mg Q4H PRN ORAL Diarrhea 10/09/16 10:30 11/08/16 10:29 10/10/16 09:47 Heparin Sodium (Porcine) (Heparin 5000 units/ml) 5,000 units EVERY 12 HOURS SUBQ 10/07/16 21:00 11/06/16 20:59 10/10/16 22:41 Mesalamine (Asacol) 1,600 mg THREE TIMES A DAY ORAL 10/07/16 18:00 11/06/16 17:59 10/10/16 19:44 Morphine Sulfate (Morphine Sulfate) 2 mg Q4H PRN IVP severe Pain (Pain Scale 7-10) 10/07/16 11:00 10/14/16 10:59 10/11/16 06:02 Nitroglycerin (Ntg) 0.4 mg Q5M X 3 DOSES PRN SL Prn Chest Pain 10/07/16 11:00 11/06/16 10:59 Ondansetron HCl (Zofran) 4 mg Q6H PRN IVP Nausea & Vomiting 10/07/16 11:00 11/06/16 10:59 Pantoprazole (Protonix) 40 mg DAILY ORAL 10/09/16 09:00 11/08/16 08:59 10/10/16 11:57 Piperacillin Sod/ Tazobactam Sod/ Sodium Chloride (Zosyn/Sodium Chloride) 110 ml @ 27.5 mls/hr EVERY 8 HOURS IVPB 10/07/16 14:00 10/14/16 13:59 10/11/16 05:42 Polyethylene Glycol (Miralax) 17 gm HSPRN PRN ORAL Constipation 10/07/16 21:00 11/06/16 20:59 Temazepam (Restoril) 15 mg HSPRN PRN ORAL Insomnia 10/07/16 21:00 10/14/16 20:59 JAMIE DE LA TORRE Oct 11, 2016 08:13
[2016-10-11] MEDS: Heparin 5000 units/ml inj SUBQ SCH ×2 (09:02→20:44)
[2016-10-11 12:13] VITALS: BP 131/85
--- NOTE | 2016-10-11 13:20 | Pulmonology Progress Note ---
Assessment/Plan Problems: (1) Crohn disease (2) Intractable nausea and vomiting (3) Abdominal pain (4) UTI (urinary tract infection) (5) Dehydration Assessment/Plan f/u gi recommendations IV abx claims to have > 15 times diarrhea check electrolytes. probably dc home in am Subjective ROS Limited/Unobtainable: No Interval Events: less diarrhea Constitutional: Reports: no symptoms HEENT: Repors: no symptoms Respiratory: Reports: no symptoms Allergies: Coded Allergies: No Known Allergies (Unverified , 10/05/16) Objective Last 24 Hour Vital Signs Date Time Temp Pulse Resp B/P Pulse Ox O2 Delivery O2 Flow Rate FiO2 10/11/16 12:13 97.0 59 18 131/85 97 Room Air 10/11/16 08:59 65 138/85 10/11/16 07:47 97.2 65 18 138/85 99 Room Air 10/11/16 04:00 96.8 56 18 124/80 98 Room Air 10/11/16 00:00 97.7 64 18 115/72 97 Room Air 10/10/16 16:00 97.3 65 20 122/72 97 Room Air Intake and Output 10/10/16 10/11/16 19:00 07:00 Intake Total 720 ml 1025.0 ml Balance 720 ml 1025.0 ml Intake Oral 120 ml 240 ml IV Total 600 ml 785.0 ml # Voids 1 # Bowel Movements 4 Objective General Appearance: WD/WN HEENT: normocephalic, atraumatic Respiratory/Chest: chest wall non-tender, lungs clear Breasts: no masses Cardiovascular: normal peripheral pulses, normal rate Abdomen: normal bowel sounds, soft, non tender Genitourinary: normal external genitalia Extremities: no cyanosis Skin: no rash 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, normal mood/affect Lymphatic: no groin adenopathy Current Medications Medications (Trade) Dose Ordered Sig/Adrienne Route PRN Reason Start Time Stop Time Status Last Admin Dose Admin Acetaminophen (Tylenol) 650 mg Q4H PRN ORAL fever>100.5 10/07/16 11:00 11/06/16 10:59 Al Hydroxide/Mg Hydroxide (Mylanta II) 30 ml Q6H PRN ORAL dyspepsia 10/07/16 11:00 11/06/16 10:59 Amlodipine Besylate 10 mg 10 mg DAILY ORAL 10/08/16 09:00 11/07/16 08:59 10/11/16 08:59 Dextrose (Dextrose 50%) STAT PRN IV Hypoglycemia 10/07/16 11:00 11/06/16 10:59 Dextrose/Sodium Chloride (D5 0.45% NS) 1,000 ml @ 75 mls/hr [id number] IV 10/07/16 11:00 11/06/16 10:59 10/11/16 05:43 Diphenhydramine HCl (Benadryl) 25 mg Q6H PRN ORAL Itching/Pruritis 10/07/16 11:00 11/06/16 10:59 Diphenoxylate HCl/ Atropine (Lomotil) 2.5 mg Q4H PRN ORAL Diarrhea 10/09/16 10:30 11/08/16 10:29 10/10/16 09:47 Heparin Sodium (Porcine) (Heparin 5000 units/ml) 5,000 units EVERY 12 HOURS SUBQ 10/07/16 21:00 11/06/16 20:59 10/11/16 09:02 Mesalamine (Asacol) 1,600 mg THREE TIMES A DAY ORAL 10/07/16 18:00 11/06/16 17:59 10/11/16 13:17 Morphine Sulfate (Morphine Sulfate) 2 mg Q4H PRN IVP severe Pain (Pain Scale 7-10) 10/07/16 11:00 10/14/16 10:59 10/11/16 10:31 Nitroglycerin (Ntg) 0.4 mg Q5M X 3 DOSES PRN SL Prn Chest Pain 10/07/16 11:00 11/06/16 10:59 Ondansetron HCl (Zofran) 4 mg Q6H PRN IVP Nausea & Vomiting 10/07/16 11:00 11/06/16 10:59 Pantoprazole (Protonix) 40 mg DAILY ORAL 10/09/16 09:00 11/08/16 08:59 10/11/16 08:59 Polyethylene Glycol (Miralax) 17 gm HSPRN PRN ORAL Constipation 10/07/16 21:00 11/06/16 20:59 Temazepam (Restoril) 15 mg HSPRN PRN ORAL Insomnia 10/07/16 21:00 10/14/16 20:59 KATHI GOODSON Oct 11, 2016 13:20
[2016-10-11 16:00] VITALS: BP 135/76
[2016-10-11] MEDS ORDERED: D5 1/2NS 1000ml IV ONE (17:21)
--- NOTE | 2016-10-11 18:36 | General Progress Note ---
Assessment/Plan Assessment/Plan Assessment/Plan Problems: (1) Diarrhea ICD Codes: R19.7 - Diarrhea, unspecified SNOMED: 53273267 (2) Dehydration ICD Codes: E86.0 - Dehydration SNOMED: 41040329 (3) Intractable nausea and vomiting ICD Codes: R11.2 - Nausea with vomiting, unspecified SNOMED: 031319052, 742531386 (4) Crohn disease ICD Codes: K50.90 - Crohn's disease, unspecified, without complications SNOMED: 64960509 Qualifiers: Qualified Codes: K50.918 - Crohn's disease, unspecified, with other complication (5) Abdominal pain ICD Codes: R10.9 - Unspecified abdominal pain SNOMED: 68429260 Qualifiers: Qualified Codes: R10.31 - Right lower quadrant pain Status: stable Assessment/Plan ESR, C-reactive protein to r/o Crohns flare >> negative iron panel unremarkable cdiff negative Crohn's management - Asacol 1600 TID, hold Prednisone at this time. - will defer possible anti-TNF Rx to primary GI MD - fu stool culture >> Imodium prn, consider Lomotil if diarrhea persists adv to low fiber/low residual diet zofran prn pain management electrolyte correction ppi abx fu labs Subjective Allergies: Coded Allergies: No Known Allergies (Unverified , 10/05/16) Subjective tolerating PO still with diarrhea no vomiting comfortable Objective Last 24 Hour Vital Signs Date Time Temp Pulse Resp B/P Pulse Ox O2 Delivery O2 Flow Rate FiO2 10/11/16 16:00 97.2 57 18 135/76 100 Room Air 10/11/16 12:13 97.0 59 18 131/85 97 Room Air 10/11/16 08:59 65 138/85 10/11/16 07:47 97.2 65 18 138/85 99 Room Air 10/11/16 04:00 96.8 56 18 124/80 98 Room Air 10/11/16 00:00 97.7 64 18 115/72 97 Room Air Intake and Output 10/10/16 10/11/16 19:00 07:00 Intake Total 720 ml 1025.0 ml Balance 720 ml 1025.0 ml Intake Oral 120 ml 240 ml IV Total 600 ml 785.0 ml # Voids 1 # Bowel Movements 4 Height (Feet): 5 Height (Inches): 9.00 Weight (Pounds): 250 Objective Obese WM NCAT supple CTA RRR Soft (+) RLQ TTP no edema non focal DUGLAS RANGEL Oct 11, 2016 18:35
[2016-10-11 19:58] VITALS: BP 130/73
[2016-10-12] VITALS: BP 128/69
[2016-10-12 04:00] VITALS: BP 132/74
[2016-10-12 07:40] LABS: BASOPHILS % (AUTO) 0.9 % (0.0-2.0); EOSINOPHILS % (AUTO) 2.6 % (0.0-3.0); LYMPHOCYTES % (AUTO) 35.9 % (20.0-45.0); MEAN CORPUSCULAR HGB CONC 34.3 G/DL (32.0-36.0); MEAN CORPUSCULAR VOLUME 93 FL (80-99); MEAN PLATELET VOLUME 8.2 FL (6.5-10.1); MONOCYTES % (AUTO) 7.7 % (1.0-10.0); PLATELET COUNT 209 K/UL (150-450); RED BLOOD COUNT 4.57 M/UL (4.70-6.10); RED CELL DISTRIBUTION WIDTH 11.5 % (11.6-14.8); WHITE BLOOD COUNT 4.5 K/UL (4.8-10.8)
[2016-10-12 07:55] LABS: ALANINE AMINOTRANSFERASE 24 U/L (3-41); ALBUMIN/GLOBULIN RATIO 1.6 (1.0-2.7); ANION GAP 11 (5-15); ASPARTATE AMINO TRANSFERASE 17 U/L (5-40); CALCIUM 9.5 mg/dL (8.6-10.2); CARBON DIOXIDE 25 mEQ/L (20-30); CHLORIDE 103 mEQ/L (98-107); CREATININE 0.9 mg/dL (0.7-1.2); CRP QUANT < 0.3 mg/dL (< 0.5); GLOMERULAR FILTRATION RATE > 60 mL/min (>60); HEMOLYSIS 8; MAGNESIUM 2.1 mg/dL (1.7-2.5); PHOSPHORUS 3.6 mg/dL (2.5-4.8); POTASSIUM 3.6 mEQ/L (3.4-4.9); SODIUM 139 mEQ/L (135-145); TOTAL PROTEIN 6.4 g/dL (6.6-8.7)
[2016-10-12 08:00] VITALS: BP 138/84
[2016-10-12] MEDS: Heparin 5000 units/ml inj SUBQ SCH ×2 (09:00→21:00)
[2016-10-12 09:23] LABS: ERYTHROCYTE SEDIMENTATION RATE 15 MM/HR (0-15)
--- NOTE | 2016-10-12 09:38 | Infectious Diseases Prog Note ---
Assessment/Plan Assessment/Plan A: Diarrhea improved Crohn's disease Abdominal pain P: Observe off antibiotic Subjective ROS Limited/Unobtainable: No Constitutional: Reports: no symptoms Respiratory: Reports: no symptoms Cardiovascular: Reports: no symptoms Gastrointestinal/Abdominal: Reports: diarrhea, other - decreased Genitourinary: Reports: no symptoms Neurologic: Reports: no symptoms Allergies: Coded Allergies: No Known Allergies (Unverified , 10/05/16) Objective Vital Signs Last 24 Hour Vital Signs Date Time Temp Pulse Resp B/P Pulse Ox O2 Delivery O2 Flow Rate FiO2 10/12/16 08:00 97.5 58 18 138/84 97 Room Air 10/12/16 04:00 97.8 57 18 132/74 100 Room Air 10/12/16 00:00 97.6 74 18 128/69 96 Room Air 10/11/16 19:58 97.8 76 18 130/73 96 Room Air 10/11/16 16:00 97.2 57 18 135/76 100 Room Air 10/11/16 12:13 97.0 59 18 131/85 97 Room Air Height (Feet): 5 Height (Inches): 9.00 Weight (Pounds): 250 General Appearance: no acute distress HEENT: mucous membranes moist Respiratory/Chest: lungs clear Cardiovascular: normal rate Abdomen: soft, non tender Extremities: no edema Neurologic/Psychiatric: alert, oriented x 3, responsive Laboratory Tests Test 10/12/16 06:00 White Blood Count 4.5 K/UL (4.8-10.8) L Red Blood Count 4.57 M/UL (4.70-6.10) L Hemoglobin 14.6 G/DL (14.2-18.0) Hematocrit 42.6 % (42.0-52.0) Mean Corpuscular Volume 93 FL (80-99) Mean Corpuscular Hemoglobin 32.0 PG (27.0-31.0) H Mean Corpuscular Hemoglobin Concent 34.3 G/DL (32.0-36.0) Red Cell Distribution Width 11.5 % (11.6-14.8) L Platelet Count 209 K/UL (150-450) Mean Platelet Volume 8.2 FL (6.5-10.1) Neutrophils (%) (Auto) 53.0 % (45.0-75.0) Lymphocytes (%) (Auto) 35.9 % (20.0-45.0) Monocytes (%) (Auto) 7.7 % (1.0-10.0) Eosinophils (%) (Auto) 2.6 % (0.0-3.0) Basophils (%) (Auto) 0.9 % (0.0-2.0) Erythrocyte Sedimentation Rate 15 MM/HR (0-15) Sodium Level 139 mEQ/L (135-145) Potassium Level 3.6 mEQ/L (3.4-4.9) Chloride Level 103 mEQ/L (98-107) Carbon Dioxide Level 25 mEQ/L (20-30) Anion Gap 11 (5-15) Blood Urea Nitrogen 10 mg/dL (7-23) Creatinine 0.9 mg/dL (0.7-1.2) Estimat Glomerular Filtration Rate > 60 mL/min (>60) Glucose Level 98 mg/dL (74-106) Calcium Level 9.5 mg/dL (8.6-10.2) Phosphorus Level 3.6 mg/dL (2.5-4.8) Magnesium Level 2.1 mg/dL (1.7-2.5) Total Bilirubin 0.3 mg/dL (0.0-1.2) Aspartate Amino Transf (AST/SGOT) 17 U/L (5-40) Alanine Aminotransferase (ALT/SGPT) 24 U/L (3-41) Alkaline Phosphatase 55 U/L (40-129) C-Reactive Protein, Quantitative < 0.3 mg/dL (< 0.5) Total Protein 6.4 g/dL (6.6-8.7) L Albumin 4.0 g/dL (3.5-5.2) Globulin 2.4 g/dL Albumin/Globulin Ratio 1.6 (1.0-2.7) Current Medications Medications (Trade) Dose Ordered Sig/Adrienne Route PRN Reason Start Time Stop Time Status Last Admin Dose Admin Acetaminophen (Tylenol) 650 mg Q4H PRN ORAL fever>100.5 10/07/16 11:00 11/06/16 10:59 Al Hydroxide/Mg Hydroxide (Mylanta II) 30 ml Q6H PRN ORAL dyspepsia 10/07/16 11:00 11/06/16 10:59 Amlodipine Besylate 10 mg 10 mg DAILY ORAL 10/08/16 09:00 11/07/16 08:59 10/11/16 08:59 Dextrose (Dextrose 50%) STAT PRN IV Hypoglycemia 10/07/16 11:00 11/06/16 10:59 Dextrose/Sodium Chloride (D5 0.45% NS) 1,000 ml @ 75 mls/hr [id number] IV 10/07/16 11:00 11/06/16 10:59 10/11/16 20:45 Diphenhydramine HCl (Benadryl) 25 mg Q6H PRN ORAL Itching/Pruritis 10/07/16 11:00 11/06/16 10:59 Diphenoxylate HCl/ Atropine (Lomotil) 2.5 mg Q4H PRN ORAL Diarrhea 10/09/16 10:30 11/08/16 10:29 10/10/16 09:47 Heparin Sodium (Porcine) (Heparin 5000 units/ml) 5,000 units EVERY 12 HOURS SUBQ 10/07/16 21:00 11/06/16 20:59 10/11/16 20:44 Mesalamine (Asacol) 1,600 mg THREE TIMES A DAY ORAL 10/07/16 18:00 11/06/16 17:59 10/11/16 17:24 Morphine Sulfate (Morphine Sulfate) 2 mg Q4H PRN IVP severe Pain (Pain Scale 7-10) 10/07/16 11:00 10/14/16 10:59 10/11/16 10:31 Nitroglycerin (Ntg) 0.4 mg Q5M X 3 DOSES PRN SL Prn Chest Pain 10/07/16 11:00 11/06/16 10:59 Ondansetron HCl (Zofran) 4 mg Q6H PRN IVP Nausea & Vomiting 10/07/16 11:00 11/06/16 10:59 Pantoprazole (Protonix) 40 mg DAILY ORAL 10/09/16 09:00 11/08/16 08:59 10/11/16 08:59 Polyethylene Glycol (Miralax) 17 gm HSPRN PRN ORAL Constipation 10/07/16 21:00 11/06/16 20:59 Temazepam (Restoril) 15 mg HSPRN PRN ORAL Insomnia 10/07/16 21:00 10/14/16 20:59 JAMIE DE LA TORRE Oct 12, 2016 09:38
[2016-10-12] MEDS ORDERED: D5 1/2NS 1000ml IV ONE ×2 (09:44→09:47)
--- NOTE | 2016-10-12 10:32 | GI Progress Note ---
Assessment/Plan Problems: (1) Diarrhea ICD Codes: R19.7 - Diarrhea, unspecified SNOMED: 93111731 (2) Dehydration ICD Codes: E86.0 - Dehydration SNOMED: 64819308 (3) Intractable nausea and vomiting ICD Codes: R11.2 - Nausea with vomiting, unspecified SNOMED: 005943024, 087232318 (4) Crohn disease ICD Codes: K50.90 - Crohn's disease, unspecified, without complications SNOMED: 67711275 Qualifiers: Qualified Codes: K50.918 - Crohn's disease, unspecified, with other complication (5) Abdominal pain ICD Codes: R10.9 - Unspecified abdominal pain SNOMED: 97982797 Qualifiers: Qualified Codes: R10.31 - Right lower quadrant pain Status: unchanged Status Narrative Discussed with Dr. Waterman. Assessment/Plan ESR, C-reactive protein to r/o Crohns flare >> negative iron panel unremarkable cdiff negative SBFT today Crohn's management - Asacol 1600 TID, hold Prednisone at this time. - will defer possible anti-TNF Rx to primary GI MD - fu stool culture >> Imodium prn, consider Lomotil if diarrhea persists adv to low fiber/low residual diet zofran prn pain management electrolyte correction ppi abx fu labs Subjective Subjective diarrhea Objective Last 24 Hour Vital Signs Date Time Temp Pulse Resp B/P Pulse Ox O2 Delivery O2 Flow Rate FiO2 10/12/16 08:00 97.5 58 18 138/84 97 Room Air 10/12/16 04:00 97.8 57 18 132/74 100 Room Air 10/12/16 00:00 97.6 74 18 128/69 96 Room Air 10/11/16 19:58 97.8 76 18 130/73 96 Room Air 10/11/16 16:00 97.2 57 18 135/76 100 Room Air 10/11/16 12:13 97.0 59 18 131/85 97 Room Air Intake and Output 10/11/16 10/12/16 19:00 07:00 Intake Total 1475 ml Balance 1475 ml Intake Oral 840 ml IV Total 635 ml # Voids 4 3 # Bowel Movements 1 4 Laboratory Tests Test 10/12/16 06:00 White Blood Count 4.5 K/UL (4.8-10.8) L Red Blood Count 4.57 M/UL (4.70-6.10) L Hemoglobin 14.6 G/DL (14.2-18.0) Hematocrit 42.6 % (42.0-52.0) Mean Corpuscular Volume 93 FL (80-99) Mean Corpuscular Hemoglobin 32.0 PG (27.0-31.0) H Mean Corpuscular Hemoglobin Concent 34.3 G/DL (32.0-36.0) Red Cell Distribution Width 11.5 % (11.6-14.8) L Platelet Count 209 K/UL (150-450) Mean Platelet Volume 8.2 FL (6.5-10.1) Neutrophils (%) (Auto) 53.0 % (45.0-75.0) Lymphocytes (%) (Auto) 35.9 % (20.0-45.0) Monocytes (%) (Auto) 7.7 % (1.0-10.0) Eosinophils (%) (Auto) 2.6 % (0.0-3.0) Basophils (%) (Auto) 0.9 % (0.0-2.0) Erythrocyte Sedimentation Rate 15 MM/HR (0-15) Sodium Level 139 mEQ/L (135-145) Potassium Level 3.6 mEQ/L (3.4-4.9) Chloride Level 103 mEQ/L (98-107) Carbon Dioxide Level 25 mEQ/L (20-30) Anion Gap 11 (5-15) Blood Urea Nitrogen 10 mg/dL (7-23) Creatinine 0.9 mg/dL (0.7-1.2) Estimat Glomerular Filtration Rate > 60 mL/min (>60) Glucose Level 98 mg/dL (74-106) Calcium Level 9.5 mg/dL (8.6-10.2) Phosphorus Level 3.6 mg/dL (2.5-4.8) Magnesium Level 2.1 mg/dL (1.7-2.5) Total Bilirubin 0.3 mg/dL (0.0-1.2) Aspartate Amino Transf (AST/SGOT) 17 U/L (5-40) Alanine Aminotransferase (ALT/SGPT) 24 U/L (3-41) Alkaline Phosphatase 55 U/L (40-129) C-Reactive Protein, Quantitative < 0.3 mg/dL (< 0.5) Total Protein 6.4 g/dL (6.6-8.7) L Albumin 4.0 g/dL (3.5-5.2) Globulin 2.4 g/dL Albumin/Globulin Ratio 1.6 (1.0-2.7) Height (Feet): 5 Height (Inches): 9.00 Weight (Pounds): 250 General Appearance: no apparent distress, alert Cardiovascular: normal rate Respiratory/Chest: normal breath sounds, no respiratory distress Abdominal Exam: normal bowel sounds, non tender, soft Genitourinary/Rectal: normal rectal exam Extremities: normal range of motion Christine Gonzales N.P. Oct 12, 2016 10:32
[2016-10-12] MEDS: D5 1/2NS 1,000 ML IV SCH (11:00)
[2016-10-12 13:00] VITALS: BP 134/79
--- NOTE | 2016-10-12 14:54 | Pulmonology Progress Note ---
Assessment/Plan Problems: (1) Crohn disease (2) Intractable nausea and vomiting (3) Abdominal pain (4) UTI (urinary tract infection) (5) Dehydration Assessment/Plan f/u gi recommendations IV abx claims to have > 15 times diarrhea small bowel follow through check electrolytes. Subjective ROS Limited/Unobtainable: No Interval Events: 25 BM today so far Allergies: Coded Allergies: No Known Allergies (Unverified , 10/05/16) Objective Last 24 Hour Vital Signs Date Time Temp Pulse Resp B/P Pulse Ox O2 Delivery O2 Flow Rate FiO2 10/12/16 13:00 97.4 59 18 134/79 97 Room Air 10/12/16 09:00 58 138/84 10/12/16 08:00 97.5 58 18 138/84 97 Room Air 10/12/16 04:00 97.8 57 18 132/74 100 Room Air 10/12/16 00:00 97.6 74 18 128/69 96 Room Air 10/11/16 19:58 97.8 76 18 130/73 96 Room Air 10/11/16 16:00 97.2 57 18 135/76 100 Room Air Intake and Output 10/11/16 10/12/16 19:00 07:00 Intake Total 1475 ml Balance 1475 ml Intake Oral 840 ml IV Total 635 ml # Voids 4 3 # Bowel Movements 1 4 Objective General Appearance: WD/WN HEENT: normocephalic, atraumatic Respiratory/Chest: chest wall non-tender, lungs clear Breasts: no masses Cardiovascular: normal peripheral pulses, normal rate Abdomen: normal bowel sounds, soft, non tender Genitourinary: normal external genitalia Extremities: no cyanosis Skin: no rash Neurologic/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 normal, normal mood/affect Lymphatic: no groin adenopathy Laboratory Tests 10/12/16 06:00: White Blood Count 4.5L, Red Blood Count 4.57L, Hemoglobin 14.6, Hematocrit 42.6 , Mean Corpuscular Volume 93, Mean Corpuscular Hemoglobin 32.0H, Mean Corpuscular Hemoglobin Concent 34.3, Red Cell Distribution Width 11.5L, Platelet Count 209, Mean Platelet Volume 8.2, Neutrophils (%) (Auto) 53.0, Lymphocytes (%) (Auto) 35.9, Monocytes (%) (Auto) 7.7, Eosinophils (%) (Auto) 2.6, Basophils (%) (Auto) 0.9, Erythrocyte Sedimentation Rate 15, Sodium Level 139, Potassium Level 3.6, Chloride Level 103, Carbon Dioxide Level 25, Anion Gap 11, Blood Urea Nitrogen 10, Creatinine 0.9, Estimat Glomerular Filtration Rate > 60, Glucose Level 98, Calcium Level 9.5, Phosphorus Level 3.6, Magnesium Level 2.1, Total Bilirubin 0.3, Aspartate Amino Transf (AST/SGOT) 17, Alanine Aminotransferase (ALT/SGPT) 24, Alkaline Phosphatase 55, C-Reactive Protein, Quantitative < 0.3, Total Protein 6.4L, Albumin 4.0, Globulin 2.4, Albumin/ Globulin Ratio 1.6 Current Medications Medications (Trade) Dose Ordered Sig/Adrienne Route PRN Reason Start Time Stop Time Status Last Admin Dose Admin Acetaminophen (Tylenol) 650 mg Q4H PRN ORAL fever>100.5 10/07/16 11:00 11/06/16 10:59 Al Hydroxide/Mg Hydroxide (Mylanta II) 30 ml Q6H PRN ORAL dyspepsia 10/07/16 11:00 11/06/16 10:59 Amlodipine Besylate 10 mg 10 mg DAILY ORAL 10/08/16 09:00 11/07/16 08:59 10/11/16 08:59 Dextrose (Dextrose 50%) STAT PRN IV Hypoglycemia 10/07/16 11:00 11/06/16 10:59 Dextrose/Sodium Chloride (D5 0.45% NS) 1,000 ml @ 75 mls/hr [id number] IV 10/07/16 11:00 11/06/16 10:59 10/11/16 20:45 Diphenhydramine HCl (Benadryl) 25 mg Q6H PRN ORAL Itching/Pruritis 10/07/16 11:00 11/06/16 10:59 Diphenoxylate HCl/ Atropine (Lomotil) 2.5 mg Q4H PRN ORAL Diarrhea 10/09/16 10:30 11/08/16 10:29 10/10/16 09:47 Heparin Sodium (Porcine) (Heparin 5000 units/ml) 5,000 units EVERY 12 HOURS SUBQ 10/07/16 21:00 11/06/16 20:59 10/11/16 20:44 Mesalamine (Asacol) 1,600 mg THREE TIMES A DAY ORAL 10/07/16 18:00 11/06/16 17:59 10/11/16 17:24 Morphine Sulfate (Morphine Sulfate) 2 mg Q4H PRN IVP severe Pain (Pain Scale 7-10) 10/07/16 11:00 10/14/16 10:59 10/11/16 10:31 Nitroglycerin (Ntg) 0.4 mg Q5M X 3 DOSES PRN SL Prn Chest Pain 10/07/16 11:00 11/06/16 10:59 Ondansetron HCl (Zofran) 4 mg Q6H PRN IVP Nausea & Vomiting 10/07/16 11:00 11/06/16 10:59 Pantoprazole (Protonix) 40 mg DAILY ORAL 10/09/16 09:00 11/08/16 08:59 10/11/16 08:59 Polyethylene Glycol (Miralax) 17 gm HSPRN PRN ORAL Constipation 10/07/16 21:00 11/06/16 20:59 Temazepam (Restoril) 15 mg HSPRN PRN ORAL Insomnia 10/07/16 21:00 10/14/16 20:59 KATHI GOODSON Oct 12, 2016 14:54
[2016-10-12] MEDS: Morphine Sulfate 2mg/ml Inj IVP PRN (15:22)
[2016-10-12 16:07] VITALS: BP 134/90
[2016-10-12 19:53] VITALS: BP 118/66
[2016-10-13] VITALS: BP 121/67
[2016-10-13] MEDS: D5 1/2NS 1,000 ML IV SCH (00:20)
[2016-10-13 03:53] VITALS: BP 120/76
[2016-10-13 06:35] LABS: BASOPHILS % (AUTO) 0.9 % (0.0-2.0); EOSINOPHILS % (AUTO) 1.7 % (0.0-3.0); LYMPHOCYTES % (AUTO) 29.7 % (20.0-45.0); MEAN CORPUSCULAR HEMOGLOBIN 32.1 PG (27.0-31.0); MEAN CORPUSCULAR HGB CONC 34.4 G/DL (32.0-36.0); MEAN CORPUSCULAR VOLUME 93 FL (80-99); MEAN PLATELET VOLUME 8.2 FL (6.5-10.1); MONOCYTES % (AUTO) 8.7 % (1.0-10.0); PLATELET COUNT 213 K/UL (150-450); RED BLOOD COUNT 4.75 M/UL (4.70-6.10); RED CELL DISTRIBUTION WIDTH 11.6 % (11.6-14.8); WHITE BLOOD COUNT 5.2 K/UL (4.8-10.8)
[2016-10-13 07:02] LABS: ALANINE AMINOTRANSFERASE 28 U/L (3-41); ALBUMIN/GLOBULIN RATIO 1.7 (1.0-2.7); ANION GAP 10 (5-15); ASPARTATE AMINO TRANSFERASE 18 U/L (5-40); CALCIUM 9.7 mg/dL (8.6-10.2); CARBON DIOXIDE 27 mEQ/L (20-30); CHLORIDE 103 mEQ/L (98-107); GLOMERULAR FILTRATION RATE > 60 mL/min (>60); HEMOLYSIS 4; POTASSIUM 4.4 mEQ/L (3.4-4.9); SODIUM 140 mEQ/L (135-145); TOTAL PROTEIN 6.5 g/dL (6.6-8.7)
[2016-10-13 07:27] LABS: CRP QUANT 0.4 mg/dL (< 0.5); MAGNESIUM 2.1 mg/dL (1.7-2.5); PHOSPHORUS 4.2 mg/dL (2.5-4.8)
[2016-10-13 08:00] VITALS: BP 126/85
[2016-10-13] MEDS: Heparin 5000 units/ml inj SUBQ SCH (08:53)
[2016-10-13 12:00] VITALS: BP 139/84
--- NOTE | 2016-10-13 12:32 | GI Progress Note ---
Assessment/Plan Problems: (1) Diarrhea ICD Codes: R19.7 - Diarrhea, unspecified SNOMED: 32876373 (2) Dehydration ICD Codes: E86.0 - Dehydration SNOMED: 50180088 (3) Intractable nausea and vomiting ICD Codes: R11.2 - Nausea with vomiting, unspecified SNOMED: 539049801, 522596933 (4) Crohn disease ICD Codes: K50.90 - Crohn's disease, unspecified, without complications SNOMED: 57398304 Qualifiers: Qualified Codes: K50.918 - Crohn's disease, unspecified, with other complication (5) Abdominal pain ICD Codes: R10.9 - Unspecified abdominal pain SNOMED: 10961643 Qualifiers: Qualified Codes: R10.31 - Right lower quadrant pain Status: stable, progressing Status Narrative Discussed with Dr. Waterman. Assessment/Plan ESR, C-reactive protein to r/o Crohns flare >> negative iron panel unremarkable cdiff negative okay for DC per GI standpoint >> Rx for lomotil given to RN >> f/u with primary GI MD fu SBFT Crohn's management - Asacol 1600 TID, hold Prednisone at this time. - will defer possible anti-TNF Rx to primary GI MD - fu stool culture >> Imodium prn, consider Lomotil if diarrhea persists low fiber/low residual diet zofran prn pain management electrolyte correction ppi abx Subjective Subjective diarrhea improved ready to go home Objective Last 24 Hour Vital Signs Date Time Temp Pulse Resp B/P Pulse Ox O2 Delivery O2 Flow Rate FiO2 10/13/16 08:00 97.3 68 18 126/85 100 Room Air 10/13/16 03:53 97.3 66 20 120/76 96 Room Air 10/13/16 00:00 97.8 76 18 121/67 100 Room Air 10/12/16 19:53 97.0 72 18 118/66 99 Room Air 10/12/16 16:07 97.9 62 18 134/90 97 Room Air 10/12/16 13:00 97.4 59 18 134/79 97 Room Air Intake and Output 10/12/16 10/13/16 19:00 07:00 Intake Total 360 ml Balance 360 ml Intake Oral 360 ml # Voids 6 3 # Bowel Movements 1 Laboratory Tests Test 10/13/16 05:55 White Blood Count 5.2 K/UL (4.8-10.8) Red Blood Count 4.75 M/UL (4.70-6.10) Hemoglobin 15.2 G/DL (14.2-18.0) Hematocrit 44.3 % (42.0-52.0) Mean Corpuscular Volume 93 FL (80-99) Mean Corpuscular Hemoglobin 32.1 PG (27.0-31.0) H Mean Corpuscular Hemoglobin Concent 34.4 G/DL (32.0-36.0) Red Cell Distribution Width 11.6 % (11.6-14.8) Platelet Count 213 K/UL (150-450) Mean Platelet Volume 8.2 FL (6.5-10.1) Neutrophils (%) (Auto) 59.0 % (45.0-75.0) Lymphocytes (%) (Auto) 29.7 % (20.0-45.0) Monocytes (%) (Auto) 8.7 % (1.0-10.0) Eosinophils (%) (Auto) 1.7 % (0.0-3.0) Basophils (%) (Auto) 0.9 % (0.0-2.0) Erythrocyte Sedimentation Rate 17 MM/HR (0-15) H Sodium Level 140 mEQ/L (135-145) Potassium Level 4.4 mEQ/L (3.4-4.9) Chloride Level 103 mEQ/L (98-107) Carbon Dioxide Level 27 mEQ/L (20-30) Anion Gap 10 (5-15) Blood Urea Nitrogen 14 mg/dL (7-23) Creatinine 1.0 mg/dL (0.7-1.2) Estimat Glomerular Filtration Rate > 60 mL/min (>60) Glucose Level 96 mg/dL (74-106) Calcium Level 9.7 mg/dL (8.6-10.2) Phosphorus Level 4.2 mg/dL (2.5-4.8) Magnesium Level 2.1 mg/dL (1.7-2.5) Total Bilirubin 0.4 mg/dL (0.0-1.2) Aspartate Amino Transf (AST/SGOT) 18 U/L (5-40) Alanine Aminotransferase (ALT/SGPT) 28 U/L (3-41) Alkaline Phosphatase 56 U/L (40-129) C-Reactive Protein, Quantitative 0.4 mg/dL (< 0.5) Total Protein 6.5 g/dL (6.6-8.7) L Albumin 4.1 g/dL (3.5-5.2) Globulin 2.4 g/dL Albumin/Globulin Ratio 1.7 (1.0-2.7) Height (Feet): 5 Height (Inches): 9.00 Weight (Pounds): 250 General Appearance: no apparent distress, alert Cardiovascular: normal rate Respiratory/Chest: normal breath sounds, no respiratory distress Abdominal Exam: normal bowel sounds, non tender, soft Extremities: normal range of motion Christine Gonzales N.P. Oct 13, 2016 12:32
--- NOTE | 2016-10-13 13:47 | Diagnostic Imaging Report ---
Indication: Abdominal pain Technique: Patient ingested oral thin liquid barium. Serial images obtained over the abdomen. Comparison: Reference made to abdomen pelvis CT 10/07/2016 and abdominal plain radiograph 8 11/18/69 Findings: Internal Grinder film demonstrates midline hernia anchor sutures, cholecystectomy clips, normal bowel gas pattern normal caliber small bowel. Normal mucosal pattern. Polypoid appearing filling defects are seen in the distal jejunum or proximal ileum. These are seen on several images. These are well-circumscribed, measures between 5 and 7 mm in diameter. Although the jejunum fills promptly, the ileum fills more slowly, and contrast is not seen within the colon until 7 hours. The ileal mucosal pattern appears unremarkable. Impression: No mucosal abnormality or other small bowel study findings to suggest Crohn's disease or other enteritis Multiple filling defects within the distal jejunum. These are not visible on prior CT, in retrospect, and could be artifactual or could represent intraluminal ingested material. However, the fact that these are seen on several images raises possibility that these could represent true polypoid lesions. Somewhat slow transit of contrast but no evidence of bowel obstruction Evidence of prior abdominal wall hernia surgery Findings discussed by phone with Dr. Waterman
--- NOTE | 2016-10-13 15:51 | Pulmonology Progress Note ---
Assessment/Plan Problems: (1) Crohn disease (2) Intractable nausea and vomiting (3) Abdominal pain (4) UTI (urinary tract infection) (5) Dehydration Assessment/Plan imroving check electrolytes. sympotamtic treatment outpatient f/u Subjective ROS Limited/Unobtainable: No Constitutional: Reports: no symptoms HEENT: Repors: no symptoms Respiratory: Reports: no symptoms Allergies: Coded Allergies: No Known Allergies (Unverified , 10/05/16) Objective Last 24 Hour Vital Signs Date Time Temp Pulse Resp B/P Pulse Ox O2 Delivery O2 Flow Rate FiO2 10/13/16 12:00 97.7 61 18 139/84 97 Room Air 10/13/16 08:00 97.3 68 18 126/85 100 Room Air 10/13/16 03:53 97.3 66 20 120/76 96 Room Air 10/13/16 00:00 97.8 76 18 121/67 100 Room Air 10/12/16 19:53 97.0 72 18 118/66 99 Room Air 10/12/16 16:07 97.9 62 18 134/90 97 Room Air Intake and Output 10/12/16 10/13/16 19:00 07:00 Intake Total 360 ml Balance 360 ml Intake Oral 360 ml # Voids 6 3 # Bowel Movements 1 Objective General Appearance: WD/WN HEENT: normocephalic, atraumatic Respiratory/Chest: chest wall non-tender, lungs clear Breasts: no masses Cardiovascular: normal peripheral pulses, normal rate Abdomen: normal bowel sounds, soft, non tender Genitourinary: normal external genitalia Extremities: no cyanosis Skin: no rash 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, normal mood/affect Lymphatic: no groin adenopathy Laboratory Tests 10/13/16 05:55: White Blood Count 5.2, Red Blood Count 4.75, Hemoglobin 15.2, Hematocrit 44.3, Mean Corpuscular Volume 93, Mean Corpuscular Hemoglobin 32.1H, Mean Corpuscular Hemoglobin Concent 34.4, Red Cell Distribution Width 11.6, Platelet Count 213, Mean Platelet Volume 8.2, Neutrophils (%) (Auto) 59.0, Lymphocytes (%) (Auto) 29.7, Monocytes (%) (Auto) 8.7, Eosinophils (%) (Auto) 1.7, Basophils (%) (Auto ) 0.9, Erythrocyte Sedimentation Rate 17H, Sodium Level 140, Potassium Level 4.4 , Chloride Level 103, Carbon Dioxide Level 27, Anion Gap 10, Blood Urea Nitrogen 14, Creatinine 1.0, Estimat Glomerular Filtration Rate > 60, Glucose Level 96, Calcium Level 9.7, Phosphorus Level 4.2, Magnesium Level 2.1, Total Bilirubin 0.4, Aspartate Amino Transf (AST/SGOT) 18, Alanine Aminotransferase ( ALT/SGPT) 28, Alkaline Phosphatase 56, C-Reactive Protein, Quantitative 0.4, Total Protein 6.5L, Albumin 4.1, Globulin 2.4, Albumin/Globulin Ratio 1.7 KATHI GOODSON Oct 13, 2016 15:51
--- NOTE | 2016-10-15 10:11 | Discharge Summary ---
Discharge Summary Hospital Course Date of Admission Oct 07, 2016 at 08:01 Date of Discharge Oct 13, 2016 at 15:28 Admitting Diagnosis abdominal pain HPI Narayan Sorenson is a 41 year old male who was admitted on Oct 07, 2016 at 08:01 for V/N/D Hospital Course [id number] Discharge Discharge Disposition Patient was discharged to Home (01) Discharge Diagnoses: Marcy Rose NP Oct 15, 2016 10:11
--- NOTE | 2016-10-15 21:31 | Discharge Summary 2 SIG ---
DATE OF ADMISSION: 10/07/2016 DATE OF DISCHARGE: 10/13/2016 CONSULTANTS: 1. Vern Waterman M.D. 2. John Lopez M.D. BRIEF HOSPITAL COURSE: The patient is a 41-year-old male with history of Crohn disease, presented to the ED complaining of four days of worsening abdominal pain. He stated that he had not been keeping food down and had been vomiting bilious vomitus and is feeling weak. On evaluation at ED, CT of the abdomen and pelvis showed an equivocally asymmetrically decreased opacification on the left kidney and bilateral nonobstructive intrarenal calculi with negative hydronephrosis. The patient presented two days prior to ED complaining of abdominal pain and at that time showed no definite acute process. He came back to the ED complaining of worsening symptoms. Laboratories showed pyuria, he was started on antibiotics. The patient was then admitted to the medical floor for intractable pain, abdominal pain, and urinary tract infection. He was placed on NPO and was given IV hydration. He was followed by Gastroenterology and was given Asacol 1600 mg t.i.d. He was given Zofran and pain management. ESR and CRP were not elevated. Prednisone was placed on hold. Stool was negative for C. difficile. Diet was advanced to low-fiber, low-residual diet. He was also given IV Zosyn. Urine culture showed growth of Staphylococcus with low count. Antibiotic was discontinued. A small bowel x-ray with Gastrografin showed no mucosal abnormality to suggest Crohn disease or enteritis with multiple filling defects within the distal jejunum. There was slow transit of contrast, but no evidence of bowel obstruction and an evidence of prior abdominal wall hernia surgery. He was given symptomatic treatment for nausea and vomiting and was given Lomotil for diarrhea and proton-pump inhibitors. He was eventually discharged home. FINAL DIAGNOSES: 1. Crohn disease. 2. Intractable nausea and vomiting. 3. Urinary tract infection. 4. Dehydration. 5. Diarrhea. DISPOSITION: The patient was discharged home. FOLLOWUP: The patient advised to follow up with PMD in a week. DISCHARGE MEDICATIONS: Refer to medication list. Layla Cuenca M.D. I have been assigned to dictate discharge summary on this account and I was not involved in the patient's management. Marcy Rose N.P. DR: DIRK JOB#: [id number] CC: MAYELA
== END 2016-10-13 15:28 | disposition home or self-care (01) | DRG 245 ==
LOC: EMR 04:18 → 4E 08:01 → EDBEDREQ 09:23 → 4W 10-10 16:46
DX: K50.90 Crohn's disease, unspecified, without complications (principal); N39.0 Urinary tract infection, site not specified; E86.0 Dehydration; R19.7 Diarrhea, unspecified; R11.2 Nausea with vomiting, unspecified
CPT/HCPCS: 36415; 74000; 74177; 74250; 80048; 80053; 81003; 82150; 82962; 83540; 83550; 83690; 83735; 84100; 85025; 85610; 85651; 85730; 86140; 87045; 87086; 87324; J2405

== ENCOUNTER 2016-10-25 22:05 | Emergency (ER) | payer MEDICAID ==
[~2016-10-25] VITALS: Ht 175.3 cm; Wt 110.7 kg
[2016-10-25] MEDS ORDERED: HUMIRA40 MG/0.2 SUBQ (22:22)
[2016-10-25] MEDS ORDERED: ASACOL HD800 MG ORAL (22:22)
[2016-10-25 22:24] VITALS: BP 144/94
--- NOTE | 2016-10-25 22:35 | Emergency Room Report ---
History of Present Illness General Chief Complaint: Abdominal Pain Source: Patient, Medical Record Present Illness HPI This is a 41-year-old male with a history of Crohn disease. Was diagnosed in 2000 he was in [place]. He complaining of Crohn exacerbation. He was here 2 weeks ago. Blood work unremarkable. He had to CT scan done this month here that were unremarkable. He has a barium swallow small bowel x-rays that did not show any evidence of Crohn disease. Patient was discharged and followup with GI. He said he got little bit better now symptom worsen. Complaining of abdominal pain with nausea vomiting and diarrhea. Claimed that he had some bloody bowel movement. He said the last time he was in the hospital was in November of last year. Denies any complaint. Pain is 10 out of 10. Allergies: Coded Allergies: No Known Allergies (Unverified , 10/05/16) Patient History Past Medical History: see triage record, old chart reviewed Past Surgical History: other Pertinent Family History: none Social History: Denies: smoking Immunizations: other Reviewed Nursing Documentation: PMH: Agreed, PSxH: Agreed Nursing Documentation-PMH Past Medical History: No History, Except For Hx Hypertension: Yes Hx Cancer: No Hx Gastrointestinal Problems: Yes - Crohns Disease Hx Neurological Problems: No Review of Systems Eye: Denies: eye pain, blurred vision ENT: Denies: ear pain, nose congestion, throat swelling Respiratory: Denies: cough, shortness of breath Cardiovascular: Denies: chest pain, palpitations Gastrointestinal: Reports: abdominal pain, diarrhea, nausea, vomiting Musculoskeletal: Denies: back pain, joint pain Skin: Denies: rash Neurological: Denies: headache, numbness Endocrine: Denies: increased thirst, increased urine Hematologic/Lymphatic: Denies: easy bruising All Other Systems: negative except mentioned in HPI Physical Exam Vital Signs Date Time Temp Pulse Resp B/P (MAP) Pulse Ox O2 Delivery O2 Flow Rate FiO2 10/25/16 22:15 99.0 97 18 144/94 98 Room Air vitals normal Sp02 EP Interpretation: reviewed, normal General Appearance: well appearing, no apparent distress, alert Head: normocephalic, atraumatic Eyes: bilateral eye PERRL, bilateral eye EOMI ENT: hearing grossly normal, normal pharynx Neck: full range of motion, supple, no meningismus Respiratory: chest non-tender, lungs clear, normal breath sounds Cardiovascular #1: regular rate, rhythm, no murmur Gastrointestinal: normal bowel sounds, no mass, no organomegaly, no bruit, non- distended, tenderness - Mild, diffuse. No guarding or rebound. Musculoskeletal: back normal, gait/station normal, normal range of motion Psychiatric: mood/affect normal Skin: warm/dry Medical Decision Making Diagnostic Impression: Primary Impression: Abdominal pain of unknown etiology Additional Impression: Drug-seeking behavior ER Course Patient with abdominal pain. He said he has a history of Crohn's but so far CT scan and x-ray of small bowel unremarkable. He has to CT scan here. He has CT scan done at [facility] and so a CT scan done at [facility]. He tell me that last time he visit the hospital was in November. I called [facility] and he was there on September 12, , , and September 29. I checked the records at [facility] and he was there on September 28 and October 01. He was here on October 05 and October 07 when he was admitted. He requests multiple pain medication. On the [facility] system, he received pain medication from hospital in [place]. I suspect a strong drug-seeking component. abdominal exam is benign. I told patient that I would not give narcotics. Will check blood work. If unremarkable we'll have him followup as an outpatient. Lab Results Impression labs normal Last Vital Signs Date Time Temp Pulse Resp B/P (MAP) Pulse Ox O2 Delivery O2 Flow Rate FiO2 10/25/16 22:24 99.0 97 18 144/94 98 Room Air Status: unchanged Disposition: HOME, SELF-CARE Condition: Stable Patient Instructions: Abdominal Pain, Adult Additional Instructions: Followup with your GI Dr. in a week. Stop going to different ERs for abdominal pain. Return if symptom worsen. CLOVER MEDINA M.D. Oct 25, 2016 22:35
[2016-10-25 22:50] LABS: APPEARANCE,URINE CLEAR; KETONES,URINE NEGATIVE (NEGATIVE); LEUKOCYTE ESTERASE ,URINE NEGATIVE (NEGATIVE); NITRITE,URINE NEGATIVE (NEGATIVE); PH,URINE 6 (4.5-8.0); PROTEIN,URINE NEGATIVE (NEGATIVE); UROBILINOGEN,URINE NORMAL MG/DL (0.0-1.0)
[2016-10-25 22:54] LABS: BASOPHILS % (AUTO) 0.8 % (0.0-2.0); EOSINOPHILS % (AUTO) 2.5 % (0.0-3.0); LYMPHOCYTES % (AUTO) 31.9 % (20.0-45.0); MEAN CORPUSCULAR HEMOGLOBIN 32.7 PG (27.0-31.0); MEAN CORPUSCULAR HGB CONC 36.2 G/DL (32.0-36.0); MEAN CORPUSCULAR VOLUME 90 FL (80-99); MEAN PLATELET VOLUME 7.8 FL (6.5-10.1); MONOCYTES % (AUTO) 11.9 % (1.0-10.0); PLATELET COUNT 209 K/UL (150-450); RED CELL DISTRIBUTION WIDTH 11.2 % (11.6-14.8); WHITE BLOOD COUNT 5.7 K/UL (4.8-10.8)
[2016-10-25 23:09] LABS: ALANINE AMINOTRANSFERASE 25 U/L (3-41); ALBUMIN/GLOBULIN RATIO 1.6 (1.0-2.7); ANION GAP 14 (5-15); ASPARTATE AMINO TRANSFERASE 19 U/L (5-40); CALCIUM 9.6 mg/dL (8.6-10.2); CARBON DIOXIDE 26 mEQ/L (20-30); CHLORIDE 103 mEQ/L (98-107); CREATININE 0.9 mg/dL (0.7-1.2); GLOMERULAR FILTRATION RATE > 60 mL/min (>60); HEMOLYSIS 5; LIPASE 41 U/L (< 60); POTASSIUM 3.8 mEQ/L (3.4-4.9); SODIUM 143 mEQ/L (135-145); TOTAL PROTEIN 6.9 g/dL (6.6-8.7)
[2016-10-25 23:33] VITALS: BP 144/94
== END 2016-10-25 23:34 | disposition home or self-care (01) ==
LOC: EMR 23:05
DX: R10.9 Unspecified abdominal pain (principal); Z76.5 Malingerer [conscious simulation]; K50.90 Crohn's disease, unspecified, without complications; I10 Essential (primary) hypertension
CPT/HCPCS: 36415; 80053; 80300; 80329; 81003; 83690; 85025; 99283

== ENCOUNTER 2017-07-16 02:26 | Emergency (ER) | payer MEDICAID ==
[~2017-07-16] VITALS: Ht 175.3 cm; Wt 122.5 kg
[~2017-07-16 02:26] MED LIST changes: +HUMIRA40 MG/0.2 SUBQ
[2017-07-16] MEDS ORDERED: TRUVADA 200 MG1 EAC1 ORAL (02:38)
--- NOTE | 2017-07-16 02:48 | Emergency Room Report ---
History of Present Illness General Chief Complaint: Dizziness Source: Patient Present Illness HPI 42-year-old male with hypertension and Crohn's disease presents with L elbow pain after getting dizzy and falling back, breaking his fall with his L elbow. He also reports pain in the occipital area of his head from the fall. Denies LOC, f/c, reports baseline normal BM, but did have 1 episode of vomiting soon after his fall from the severe L elbow pain. Did not bleed anywhere, denies shoulder, forearm, wrist, digit pain, and denies neck pain, denies blood thinner usage. Allergies: Coded Allergies: No Known Allergies (Unverified , 10/05/16) Patient History Limited by: age Past Medical History: see triage record Reviewed Nursing Documentation: PMH: Agreed; PSxH: Agreed Nursing Documentation-PMH Past Medical History: No History, Except For Hx Hypertension: Yes Hx Cancer: No Hx Gastrointestinal Problems: Yes - Crohns Disease Hx Neurological Problems: No Review of Systems All Other Systems: negative except mentioned in HPI Physical Exam Vital Signs Date Time Temp Pulse Resp B/P (MAP) Pulse Ox O2 Delivery O2 Flow Rate FiO2 07/16/17 02:33 98.4 84 16 164/107 97 Room Air 98.4 Sp02 EP Interpretation: reviewed, normal General Appearance: no apparent distress, alert, non-toxic Head: normocephalic Eyes: bilateral eye normal inspection, bilateral eye PERRL, bilateral eye EOMI ENT: normal ENT inspection, hearing grossly normal, normal pharynx, no angioedema, normal voice, moist mucus membranes Neck: normal inspection, full range of motion, supple, supple/symm/no masses Respiratory: chest non-tender, lungs clear, normal breath sounds, chest symmetrical, palpation of chest normal Cardiovascular #1: normal peripheral pulses, regular rate, rhythm Cardiovascular #2: 2+ radial (R), 2+ radial (L) Gastrointestinal: normal inspection, non tender, soft, no mass, no guarding, no rebound Rectal: deferred Genitourinary: normal inspection, no CVA tenderness Musculoskeletal: back normal, gait/station normal, tender - L elbow tender, occipital area of head tender but no ecchymosis; mild L hand edema, 2+ rad pulse Neurologic: alert, responsive, electrical solderer III-XII nml as tested, motor strength/tone normal, sensory intact, speech normal Psychiatric: judgement/insight normal, mood/affect normal Skin: normal color, no rash, warm/dry, normal turgor Lymphatic: no adenopathy Medical Decision Making Diagnostic Impression: Primary Impression: Dizziness Additional Impression: Elbow pain, left Last Vital Signs Date Time Temp Pulse Resp B/P (MAP) Pulse Ox O2 Delivery O2 Flow Rate FiO2 07/16/17 02:33 98.4 84 16 164/107 97 Room Air 98.4 IVELISSE COE M.D July 16, 2017 02:48
[2017-07-16] MEDS ORDERED: Norco 5mg/325mg tab ORAL ONE (03:15)
[2017-07-16 04:06] VITALS: BP 122/79
[2017-07-16 04:20] VITALS: BP 122/79
--- NOTE | 2017-07-16 09:59 | Diagnostic Imaging Report ---
Indication: Reason For Exam: H/A Technique: Continuous helical CT scanning of the head was performed without intravenous contrast material. Axial and coronal 5 mm sections were generated. Radiation dose was minimized using automated exposure control Dose: Total Dose Length Product - DLP 1417.[address] Dose Index - CTDIvol(s) 70.38 mGy. Comparison: none Findings: The ventricular system is normal in size and configuration. There is no shift of midline structures. No abnormal extra-axial fluid collections are noted. There is no evidence of intracerebral bleeding. No other abnormal high or low density areas are noted within the brain. Intact calvarium. Normal whyte-white differentiation. Visualized orbits and sinuses are unremarkable. The mastoids are clear Impression: Normal CT scan of the head without contrast material. This agrees with the preliminary interpretation provided overnight by [facility] teleradiology service. The CT scanner at [facility] is accredited by the [employer] and the scans are performed using protocols designed to limit radiation exposure to as low as reasonably achievable to attain images of sufficient resolution adequate for diagnostic evaluation.
--- NOTE | 2017-07-16 10:30 | Diagnostic Imaging Report ---
Indication: Neck pain after fall earlier today Technique: Spiral acquisitions obtained through the cervical spine. No IV contrast utilized. Multiplanar reconstructions were generated. Total dose length product 526.62 mGycm. CTDIvol(s) 28.12 mGy. Dose reduction achieved using automated exposure control. Comparison: none Findings: There is surgical hardware centrally at the C5-6 and C6-7 discs. This results in artifact which may obscure pathology. Bony alignment is normal. No acute fractures. No dislocations. No definite significant disc bulge or protrusion or spinal stenosis. There is suggestion of left-sided neural foraminal stenoses at C5-6 and C6-7, although this is not well evaluated due to the streak artifact. There is evidence of extensive dental disease, with multiple dental caries demonstrated. 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
--- NOTE | 2017-07-16 14:26 | Diagnostic Imaging Report ---
Indications:Left elbow pain after falling earlier today Technique: Three or 4 views of the left elbow Comparison: None Findings: Lateral view demonstrates elevation of the posterior anterior fat pads, consistent with a joint effusion. No definite acute fractures. No dislocations. The joint spaces are preserved. Impression: No definite acute fracture demonstrated. However, the presence of joint effusion is suspicious for occult nondisplaced fracture. Recommend follow-up radiography in 7-10 days Note that patient was recalled to the radiology department for repeat lateral view, which shows the effusion. Dr. Quick in the emergency room was notified at the time of interpretation, and the patient was sent back to the ED
[2017-07-16] MEDS ORDERED: NORCO 7.5-3251 EACH ORAL (16:28)
== END 2017-07-16 04:20 | disposition home or self-care (01) ==
LOC: EMR 02:55
DX: R42 Dizziness and giddiness (principal); M25.522 Pain in left elbow; I10 Essential (primary) hypertension; K50.90 Crohn's disease, unspecified, without complications; K02.9 Dental caries, unspecified; M48.02 Spinal stenosis, cervical region; R51 Headache
CPT/HCPCS: 29105; 70450; 72125; 99283; 99284

== ENCOUNTER 2017-07-16 14:17 | Emergency (ER) | payer MEDICAID ==
[~2017-07-16] VITALS: Ht 167.6 cm; Wt 136.1 kg
[~2017-07-16 14:17] MED LIST changes: +TRUVADA 200 MG1 EAC1 ORAL
[2017-07-16 14:25] VITALS: BP 168/105
[2017-07-16] MEDS ORDERED: Norco 5mg/325mg tab ORAL ONE (14:45)
[2017-07-16 15:40] VITALS: BP_SYST 138; BP_SYST 140; BP_SYST 146; BP_DIAS 104; BP_DIAS 93
--- NOTE | 2017-07-16 15:49 | Emergency Room Report ---
History of Present Illness General Chief Complaint: Upper Extremity Injury Present Illness HPI 32-year-old male presents to the emergency department complaining of 10 out of 10 in severity posterior left elbow pain with associated swelling and tenderness. Pt. reports he was notified to return to the hospital for repeat lateral elbow x-ray by radiologist this am. Patient states that he was here early this morning and evaluated after syncopal episode resulting in hitting his head and fracture in his elbow. Patient states that on multiple he had similar episode for which she was admitted to the [facility] in [place] until June 30. Patient states that prior to syncopal episode he has acute onset of dizziness which he describes as the room spinning about him. Patient also reports that when this happens he becomes very nauseated and will vomit. Patient verbalizes that he is worried that this may happen again he states that his primary care provider is evidence of skull area. Patient states that when admitted at the hospital he was fully evaluated by neurologist had imaging performed and did several maneuvers where he sat up and down and turned his head to the sides. Pt. reports he was given meclizine and Zofran with no improvement during previous hospitalization in . Denies unilateral weaknesses. Dipak exacerbation of his symptoms with looking upward. Patient denies new trauma or fall since evaluated here early this morning. Denies CP, Palpitations, AMS, Changes in Vision, Loss of vision, floaters, neck pain, Tinnitus, recent URI, paresthesias, or a sudden severe headache. Allergies: Coded Allergies: No Known Allergies (Unverified , 10/05/16) Patient History Past Medical History: see triage record Past Surgical History: none Pertinent Family History: none Reviewed Nursing Documentation: PMH: Agreed; PSxH: Agreed Nursing Documentation-PMH Hx Hypertension: Yes Hx Cancer: No Hx Gastrointestinal Problems: Yes - Crohns Disease Hx Neurological Problems: No Review of Systems All Other Systems: negative except mentioned in HPI Physical Exam Vital Signs Date Time Temp Pulse Resp B/P (MAP) Pulse Ox O2 Delivery O2 Flow Rate FiO2 07/16/17 14:20 98.2 85 20 168/105 99 Room Air 98.2 Sp02 EP Interpretation: reviewed, normal General Appearance: alert, GCS 15, non-toxic, mild distress Head: normocephalic, atraumatic Eyes: bilateral eye normal inspection, bilateral eye PERRL, bilateral eye EOMI ENT: hearing grossly normal, normal voice Neck: full range of motion Respiratory: lungs clear, normal breath sounds, speaking full sentences Cardiovascular #1: regular rate, rhythm, normal capillary refill Gastrointestinal: normal bowel sounds, non tender, soft Musculoskeletal: back normal, gait/station normal, normal range of motion, tender - TTP to the posteriolateral left elbow, pain with flexion, prefers extension. Neurologic: normal inspection, alert, oriented x3, responsive, sensory intact, cerebellar normal, normal gait, speech normal, other - no nystagmus bilaterally. , grossly normal Psychiatric: judgement/insight normal Skin: normal color, no rash, warm/dry, well hydrated Lymphatic: no adenopathy Medical Decision Making PA Attestation Dr. Martin is my supervising Physician whom patient management has been discussed with. Diagnostic Impression: Primary Impression: Elbow fracture, left Qualified Codes: S42.402A - Unspecified fracture of lower end of left humerus , initial encounter for closed fracture Additional Impressions: Hx of syncope History of dizziness ER Course 32-year-old male presents to the emergency department complaining of 10 out of 10 in severity posterior left elbow pain with associated swelling and tenderness. Pt. reports he was notified to return to the hospital for repeat lateral elbow x-ray by radiologist this am. Patient states that he was here early this morning and evaluated after syncopal episode resulting in hitting his head and fracture in his elbow. Patient states that on multiple he had similar episode for which she was admitted to the [facility] in [place] until June 30. Patient states that prior to syncopal episode he has acute onset of dizziness which he describes as the room spinning about him. Patient also reports that when this happens he becomes very nauseated and will vomit. Patient verbalizes that he is worried that this may happen again he states that his primary care provider is evidence of skull area. Patient states that when admitted at the hospital he was fully evaluated by neurologist had imaging performed and did several maneuvers where he sat up and down and turned his head to the sides. Pt. reports he was given meclizine and Zofran with no improvement during previous hospitalization in . Denies unilateral weaknesses. Dipak exacerbation of his symptoms with looking upward. Patient denies new trauma or fall since evaluated here early this morning. Denies CP, Palpitations, AMS, Changes in Vision, Loss of vision, floaters, neck pain, Tinnitus, recent URI, paresthesias, or a sudden severe headache. Review of newly performed x-ray by radiologist noted that there is anterior fat pad sign indicating possible cold fracture. Patient return to the emergency department for splint placement. Ddx considered but are not limited to Fracture, dislocation, contusion, Sprain/ Strain/Spasm, CVA-posterior, BPPV, Dysrhythmia, Hypovolemia Vital signs: are WNL, pt. is afebrile -- H&PE are most consistent with Positive fracture findings on X-ray that was repeated today. - no focal neurological deficits, unable to illicit vertigo symptoms on exam, no nystagmus- currently asymptomatic neurologically. ORDERS: - X-ray Left Elbow Lateral 1 view - Positive anterior fat-pad, No Dislocation, or significant soft tissue injury, per preliminary read in ED, and signed by LINDSAY Cain, my supervising physician has reviewed, and agrees with my interpretation. -I reviewed this patient's head CT that was performed this morning which was unremarkable. EK mild QT prolongation, otherwise normal. -Ortho Static VS: Negative ED INTERVENTIONS: - Left long arm posterior Splint applied by technical applications scientist. Pt. remains neurovascularly intact. - Left arm Sling applied by technical applications scientist. Pt. remains neurovascularly intact. - Given that this patient has been fully evaluated by a neurologist during his prior admission for vertigo symptoms I feel pt. is stable for close outpatient follow up. - Pt. had concern that his insurance is not accepted down here in [place] and that he will not be able to see a neurologist here, requests multiple times for admission. d/w pt. that I do not find an emergent condition at this time. reassured him multiple times that he will be given list of free/reduced cost clinics for follow up. DISCHARGE: At this time pt. is stable for d/c to home. Will provide printed patient care instructions, and any necessary prescriptions. Care plan and follow up instructions have been discussed with the patient prior to discharge. Last Vital Signs Date Time Temp Pulse Resp B/P (MAP) Pulse Ox O2 Delivery O2 Flow Rate FiO2 07/16/17 15:43 98.2 07/16/17 15:40 69 20 146/104 100 Room Air 73 140/93 84 138/104 Disposition: HOME, SELF-CARE Condition: Stable Scripts Hydrocodone Bit/Acetaminophen 7.5-325* (NORCO 7.5-325*) 1 Each Tablet 1 TAB ORAL Q6H PRN for For Pain, #15 TAB 0 Refills Prov: Imelda Cain 07/16/17 Referrals: PAWAN BENITEZ This is a recommendation, This does not mean your insurance will cover the costs of services. Contact your insurance to find out this information. Patient Instructions: Radial Head Fracture, [id number], Vertigo, [id number] Additional Instructions: Take medications as directed. Follow up with: 1. NEUROLOGIST within 3-5 days, even if your symptoms have resolved. 2. Sole Molding Machine Operator within 3-5 days, to evaluate your radial head fracture. --Please review list of primary care clinics, if you do not already have a primary care provider Return sooner to ED if new symptoms occur, or current symptoms become worse. Do not drive, or operate heavy machinery until cleared by Neurologist. - Please note that this Emergency Department Report was dictated using [employer] cutter technology software, occasionally this can lead to erroneous entry secondary to interpretation by the dictation equipment. Imelda Cain July 16, 2017 15:49
[2017-07-16 16:00] LABS: APPEARANCE,URINE CLEAR; BILIRUBIN, URINE NEGATIVE (NEGATIVE); COLOR,URINE PALE YELLOW; GLUCOSE, URINE (UA) NEGATIVE (NEGATIVE); KETONES,URINE NEGATIVE (NEGATIVE); LEUKOCYTE ESTERASE ,URINE NEGATIVE (NEGATIVE); NITRITE,URINE NEGATIVE (NEGATIVE); PH,URINE 6 (4.5-8.0); PROTEIN,URINE NEGATIVE (NEGATIVE); UROBILINOGEN,URINE NORMAL MG/DL (0.0-1.0)
[2017-07-16] MEDS ORDERED: NORCO 7.5-3251 EACH ORAL (16:28)
[2017-07-16 16:56] VITALS: BP 142/86
--- NOTE | 2017-07-19 13:59 | Cardiology Report ---
APPROVED REPORT EKG Measurement Heart [id number] Normal sinus rhythm Cannot rule out Anterior infarct, age undetermined Abnormal ECG
== END 2017-07-16 16:58 | disposition home or self-care (01) ==
LOC: EMR 14:38
DX: S42.402A Unspecified fracture of lower end of left humerus, initial encounter for closed fracture (principal); X58.XXXA Exposure to other specified factors, initial encounter; R55 Syncope and collapse; R42 Dizziness and giddiness; I10 Essential (primary) hypertension
CPT/HCPCS: 29105; 80307; 81003; 93005; 99284